=== PATIENT | female | born 1960 | race Caucasian/White ===

== ENCOUNTER 2017-10-22 15:07 | Emergency (ER) | payer MEDICAID ==
[2012-01-01 14:21] VITALS: BMI 16.5
[2017-10-22 16:17] LABS: BASOPHILS 0.3 % (0-2); EOSINOPHILS 0.4 % (0-7); HEMATOCRIT 39.1 % (36.0-48.0); HEMOGLOBIN 13.8 g/dL (12-16); IMMATURE GRANULOCYTES 0.1 % (0-5); LYMPHOCYTES 21.7 % (15-50); MCH 32.4 pg (26.0-34.0); MCHC 35.3 g/dL (31.0-37.0); MCV 91.8 fL (80.0-100.0); MEAN PLATELET VOLUME 10.3 fL (7.4-10.4); MONOCYTES 6.1 % (2-11); NEUTROPHILS 71.4 % (40-80); RBC 4.26 10x6/uL (4.00-5.40); RDW 12.2 % (11.5-14.5)
[2017-10-22 16:29] LABS: INR 1.08 (0.85-1.17); PLATELET COUNT 128 10x3/uL (130-400); PROTIME 13.6 SECONDS (11.6-15.0)
[2017-10-22 16:40] LABS: ALBUMIN 4.1 g/dL (3.4-5.0); ALKALINE PHOSPHATASE 40 U/L (46-116); ALT (SGPT) 18 U/L (10-68); CALC OSMOLALITY 259 mosm/kg (275-300); CALCIUM 8.9 mg/dL (8.5-10.1); CARBON DIOXIDE 26.6 mmol/L (21.0-32.0); CHLORIDE - SERUM 95 mmol/L (98-107); CREATININE - SERUM 0.4 mg/dL (0.6-1.3); GLUCOSE 85 mg/dL (74-106); POTASSIUM - SERUM 3.7 mmol/L (3.5-5.1); SODIUM 131 mmol/L (136-145); UREA NITROGEN 7 mg/dL (7-18); eGFR NON AFRICAN AMERICAN > 90 mL/min (90-120)
[2017-10-22 16:43] LABS: CREATINE KINASE 139 UL (21-215); TROPONIN-I < 0.017 ng/mL (0.000-0.060)
[2017-10-22 17:47] LABS: APPEARANCE CLEAR (CLEAR); BILIRUBIN NEGATIVE (NEGATIVE); COLOR YELLOW (YELLOW); GLUCOSE NEGATIVE (NEGATIVE); KETONE NEGATIVE (NEGATIVE); NITRITE NEGATIVE (NEGATIVE); PROTEIN NEGATIVE (NEGATIVE); UROBILINOGEN NORMAL (NORMAL)
== END 2017-10-22 18:18 | disposition home or self-care (01) ==
LOC: D.ER 15:07
PROVIDERS: Nurse Practitioner Family
DX: S09.93XA Unspecified injury of face, initial encounter (principal); W19.XXXA Unspecified fall, initial encounter; Y93.89 Activity, other specified; Y92.019 Unspecified place in single-family (private) house as the place of occurrence of the external cause; S01.511A Laceration without foreign body of lip, initial encounter; S01.512A Laceration without foreign body of oral cavity, initial encounter; J44.9 Chronic obstructive pulmonary disease, unspecified

== ENCOUNTER 2017-12-03 10:21 | Inpatient (IN) | payer MEDICAID ==
[~2017-12-03] VITALS: Ht 160 cm; Wt 41.1 kg
[2017-12-03 11:00] VITALS: BP 123/78
[2017-12-03 11:08] LABS: BASOPHILS 0.2 % (0-2); EOSINOPHILS 0 % (0-7); HEMATOCRIT 39.2 % (36.0-48.0); HEMOGLOBIN 14.8 g/dL (12-16); IMMATURE GRANULOCYTES 0.2 % (0-5); LYMPHOCYTES 18.3 % (15-50); MCH 33.3 pg (26.0-34.0); MCHC 37.8 g/dL (31.0-37.0); MCV 88.1 fL (80.0-100.0); MEAN PLATELET VOLUME 10.6 fL (7.4-10.4); MONOCYTES 5.9 % (2-11); NEUTROPHILS 75.4 % (40-80); RBC 4.45 10x6/uL (4.00-5.40); RDW 11.5 % (11.5-14.5); WBC 6.4 10x3/uL (4.8-10.8)
[2017-12-03 11:11] LABS: PLATELET COUNT 165 10x3/uL (130-400)
[2017-12-03 11:27] LABS: ALKALINE PHOSPHATASE 40 U/L (46-116); ALT (SGPT) 17 U/L (10-68); CALC OSMOLALITY 241 mosm/kg (275-300); CALCIUM 9.3 mg/dL (8.5-10.1); CARBON DIOXIDE 32.3 mmol/L (21.0-32.0); CREATININE - SERUM 0.4 mg/dL (0.6-1.3); GLUCOSE 96 mg/dL (74-106); POTASSIUM - SERUM 4.2 mmol/L (3.5-5.1); PROTEIN - SERUM 6.7 g/dL (6.4-8.2); SODIUM 121 mmol/L (136-145); UREA NITROGEN 6 mg/dL (7-18); eGFR NON AFRICAN AMERICAN > 90 mL/min (90-120)
[2017-12-03 11:30] LABS: CHLORIDE - SERUM 85 mmol/L (98-107)
[2017-12-03 11:38] LABS: CKMB 2.8 U/L (0.0-3.6); CREATINE KINASE 106 UL (21-215); TROPONIN-I < 0.017 ng/mL (0.000-0.060)
[2017-12-03 12:29] VITALS: BP 113/66
[2017-12-03 13:04] LABS: APPEARANCE CLEAR (CLEAR); BILIRUBIN NEGATIVE (NEGATIVE); COLOR YELLOW (YELLOW); GLUCOSE NEGATIVE (NEGATIVE); KETONE MODERATE mg/dL (NEGATIVE); NITRITE NEGATIVE (NEGATIVE); PROTEIN NEGATIVE (NEGATIVE); UROBILINOGEN NORMAL (NORMAL)
[2017-12-03 13:05] LABS: BACTERIA FEW /hpf (NONE SEEN); EPITHELIAL CELLS OCC /hpf (0-5); MUCUS <1+ /lpf (NONE SEEN); WHITE CELLS - URINE RARE /hpf (0-5)
[2017-12-03 13:30] VITALS: BP 129/76
[2017-12-03 14:32] VITALS: BP 134/76
[2017-12-03 17:23] VITALS: BP 112/76; BMI 15.5
[2017-12-03 20:00] VITALS: BP 101/61
[2017-12-04 06:17] VITALS: BP 114/73
[2017-12-04 07:00] VITALS: BP 101/65
[2017-12-04 09:59] VITALS: Ht 160 cm; Wt 41.1 kg
[2017-12-04 11:00] VITALS: BP 117/67
[2017-12-04 11:28] LABS: HEMATOCRIT 36.6 % (36.0-48.0); HEMOGLOBIN 13.3 g/dL (12-16); MCH 32.6 pg (26.0-34.0); MCHC 36.3 g/dL (31.0-37.0); MCV 89.7 fL (80.0-100.0); MEAN PLATELET VOLUME 10.8 fL (7.4-10.4); PLATELET COUNT 143 10x3/uL (130-400); RBC 4.08 10x6/uL (4.00-5.40); RDW 11.8 % (11.5-14.5)
[2017-12-04 11:34] LABS: WBC 4.1 10x3/uL (4.8-10.8)
[2017-12-04 11:48] LABS: INR 1.02 (0.85-1.17)
[2017-12-04 11:51] LABS: ALBUMIN 3.3 g/dL (3.4-5.0); ALKALINE PHOSPHATASE 37 U/L (46-116); ALT (SGPT) 15 U/L (10-68); CALCIUM 8.2 mg/dL (8.5-10.1); CARBON DIOXIDE 30.2 mmol/L (21.0-32.0); CHLORIDE - SERUM 96 mmol/L (98-107); CREATININE - SERUM 0.5 mg/dL (0.6-1.3); MAGNESIUM - SERUM 1.8 mg/dL (1.8-2.4); PROTEIN - SERUM 5.9 g/dL (6.4-8.2); SODIUM 131 mmol/L (136-145); UREA NITROGEN 5 mg/dL (7-18); eGFR NON AFRICAN AMERICAN > 90 mL/min (90-120)
[2017-12-04 12:00] VITALS: BP 106/73; BP 108/77
[2017-12-04 12:02] LABS: CALC OSMOLALITY 263 mosm/kg (275-300); GLUCOSE 162 mg/dL (74-106); POTASSIUM - SERUM 3.3 mmol/L (3.5-5.1)
[2017-12-04 12:10] LABS: EOSINOPHILS 1 % (0-7); LYMPHOCYTES 20 % (15-50); MONOCYTES 1 % (2-11); NEUTROPHILS 76 % (40-80); PLATELET ESTIMATE NORMAL
[2017-12-04 12:28] LABS: UDS - AMPHET NEGATIVE QUAL (NEGATIVE); UDS - BARB NEGATIVE QUAL (NEGATIVE); UDS - BENZO NEGATIVE QUAL (NEGATIVE); UDS - COCAINE NEGATIVE QUAL (NEGATIVE); UDS - OPIATE NEGATIVE QUAL (NEGATIVE); UDS - PCP NEGATIVE QUAL (NEGATIVE); UDS - THC NEGATIVE QUAL (NEGATIVE)
[2017-12-04 21:53] VITALS: BP 90/54
[2017-12-05 00:49] VITALS: BP 62/33
[2017-12-05 05:17] VITALS: BP 107/69
[2017-12-05 05:19] LABS: CALC OSMOLALITY 262 mosm/kg (275-300); CALCIUM 7.8 mg/dL (8.5-10.1); CARBON DIOXIDE 29.5 mmol/L (21.0-32.0); CHLORIDE - SERUM 99 mmol/L (98-107); CREATININE - SERUM 0.4 mg/dL (0.6-1.3); POTASSIUM - SERUM 3.3 mmol/L (3.5-5.1); SODIUM 133 mmol/L (136-145); UREA NITROGEN 6 mg/dL (7-18); eGFR NON AFRICAN AMERICAN > 90 mL/min (90-120)
[2017-12-05 05:25] LABS: GLUCOSE 88 mg/dL (74-106)
[2017-12-05 09:11] VITALS: BP 103/66
[2017-12-05] MEDS ORDERED: PROTONIX40 MG PO (11:32)
[2017-12-05] MEDS ORDERED: NICODERM C1 PATCH .1 TRANSDERM (11:33)
[2017-12-05 12:35] VITALS: BP 86/58
[2017-12-16 17:07] LABS: AEROBE ID Final report (())
== END 2017-12-05 13:11 | disposition home or self-care (01) | DRG 641 ==
LOC: D.ER 10:21 → D.M2 15:06 → D.EDHOLD 15:06 → D.M2 15:53
PROVIDERS: Family Medicine; Internal Medicine Nephrology
DX: E87.1 Hypo-osmolality and hyponatremia (principal); J44.1 Chronic obstructive pulmonary disease with (acute) exacerbation; F17.213 Nicotine dependence, cigarettes, with withdrawal; R55 Syncope and collapse; R42 Dizziness and giddiness; K25.9 Gastric ulcer, unspecified as acute or chronic, without hemorrhage or perforation

== ENCOUNTER 2018-08-20 17:41 | Inpatient (IN) | payer MEDICAID ==
[~2018-08-20] VITALS: Ht 157.5 cm; Wt 38.2 kg
[~2018-08-20 17:41] MED LIST: NICODERM C1 PATCH .1 TRANSDERM; PROTONIX40 MG PO
[2018-08-20] MEDS ORDERED: MECLIZINE HCL25 MG PO (17:54)
[2018-08-20] MEDS ORDERED: BREO ELLIPTA 11 EACH INH (17:54)
[2018-08-20] MEDS ORDERED: PROVENTIL/2.5 MG/3 M INH (17:55)
[2018-08-20] MEDS ORDERED: CHANTIX 1 MG TAB1 MG PO (17:55)
[2018-08-20 19:04] LABS: ALBUMIN 3.9 g/dL (3.4-5.0); ALKALINE PHOSPHATASE 35 U/L (46-116); ALT (SGPT) 17 U/L (10-68); BILIRUBIN - TOTAL 2.01 mg/dL (0.2-1.3); CALC OSMOLALITY 247 mosm/kg (275-300); CALCIUM 8.4 mg/dL (8.5-10.1); CARBON DIOXIDE 25.6 mmol/L (21.0-32.0); CHLORIDE - SERUM 88 mmol/L (98-107); CREATININE - SERUM 0.3 mg/dL (0.6-1.3); GLUCOSE 80 mg/dL (74-106); POTASSIUM - SERUM 3.9 mmol/L (3.5-5.1); PROTEIN - SERUM 6.7 g/dL (6.4-8.2); SODIUM 125 mmol/L (136-145); UREA NITROGEN 5 mg/dL (7-18); eGFR NON AFRICAN AMERICAN > 90 mL/min (90-120)
[2018-08-20 19:15] LABS: CREATINE KINASE 45 UL (21-215); PRO BNP 77 pg/mL (0-125); TROPONIN-I < 0.017 ng/mL (0.000-0.060)
[2018-08-20 19:43] LABS: BASOPHILS 0.2 % (0-2); EOSINOPHILS 0.6 % (0-7); HEMATOCRIT 37.7 % (36.0-48.0); HEMOGLOBIN 13.9 g/dL (12-16); IMMATURE GRANULOCYTES 0.2 % (0-5); LYMPHOCYTES 38.6 % (15-50); MCH 32.6 pg (26.0-34.0); MCHC 36.9 g/dL (31.0-37.0); MCV 88.3 fL (80.0-100.0); MEAN PLATELET VOLUME 10.8 fL (7.4-10.4); MONOCYTES 11.6 % (2-11); NEUTROPHILS 48.8 % (40-80); PLATELET COUNT 163 10x3/uL (130-400); RBC 4.27 10x6/uL (4.00-5.40); RDW 11.8 % (11.5-14.5); WBC 4.9 10x3/uL (4.8-10.8)
[2018-08-20 20:00] VITALS: BP 116/71
[2018-08-20 20:02] VITALS: BP 127/73
--- NOTE | 2018-08-20 20:27 | NUR ---
assited pt with ambulating to restroom.
--- NOTE | 2018-08-20 20:33 | NUR ---
RECIEVED REPORT FROM BLAYNE IN ER
--- NOTE | 2018-08-20 20:45 | NUR ---
RECIEVED FROM ER VIA WC BY ER STAFF AND FAMILY, PT A&O X3 BREATH SOUNDS EVEN UNLABORED V/S WNL, IV RT HAND 20GAUGE, NO C/O PAIN OR DISTRESS AT THIS TIME CL IN REACH WILL CONT TO MONITOR
--- NOTE | 2018-08-20 21:55 | NUR ---
PAGED DOCTOR CHECK GRADER FOR DR. SOLANO , PT WOULD LIKE TO TAKE HER SINCERE CROSS FROM HOME
[2018-08-21] VITALS (7 sets, daily range): BP systolic 83–162; BP diastolic 43–73; Ht 157.5 cm; Wt 38.2 kg
[2018-08-21 07:14] LABS: CALCIUM 8.8 mg/dL (8.5-10.1); CARBON DIOXIDE 25.7 mmol/L (21.0-32.0); CHLORIDE - SERUM 95 mmol/L (98-107); POTASSIUM - SERUM 4.4 mmol/L (3.5-5.1); SODIUM 133 mmol/L (136-145)
[2018-08-21 07:16] LABS: CALC OSMOLALITY 265 mosm/kg (275-300); CREATININE - SERUM 0.5 mg/dL (0.6-1.3); GLUCOSE 129 mg/dL (74-106); UREA NITROGEN 8 mg/dL (7-18); eGFR NON AFRICAN AMERICAN > 90 mL/min (90-120)
--- NOTE | 2018-08-21 08:00 | NUR ---
REPORT RECEIVED AND CARE ASSUMED. SHIFT ASSESSMENT COMPLETED. AAOX4 DENIES ANY NEEDS OR PAIN AT THIS TIME. BED IN LOW POSITION AND SR UP X 2. WILL CONTINUE TO MONITOR.
--- NOTE | 2018-08-21 20:05 | NUR ---
SITTING UP IN BED. ALERT AND ORIENTED X4. TALKATIVE WITH STAFF. RESP IRREG. BBS DIMINISHED. REPORTS PROD COUGH WITH WHITE SPUTUM. GEN WEAKNESS NOTED. NS @ 100 ML/HR INFUSING IN RT HAND WITHOUT DIFF. DENIES PAIN. STATES SHE WANTS TO SPEAK WITH RANCH RIDER ABOUT GETTING HOME O2. STATES HER RECENTLY AND HAS FINANCIAL CONCERNS. WILL NOTIFY NURSE IN AM OF REQUEST AND CONCERNS. NO DISTRESS. SR ELEVATED X2. CL IN REACH.
[2018-08-22] VITALS (8 sets, daily range): BP systolic 94–127; BP diastolic 52–70
[2018-08-22 06:39] LABS: CALC OSMOLALITY 274 mosm/kg (275-300); CALCIUM 8.1 mg/dL (8.5-10.1); CARBON DIOXIDE 27.2 mmol/L (21.0-32.0); CHLORIDE - SERUM 103 mmol/L (98-107); CREATININE - SERUM 0.4 mg/dL (0.6-1.3); GLUCOSE 142 mg/dL (74-106); MAGNESIUM - SERUM 1.9 mg/dL (1.8-2.4); POTASSIUM - SERUM 4.2 mmol/L (3.5-5.1); SODIUM 137 mmol/L (136-145); UREA NITROGEN 9 mg/dL (7-18); eGFR NON AFRICAN AMERICAN > 90 mL/min (90-120)
[2018-08-22 06:47] LABS: BASOPHILS 0 % (0-2); EOSINOPHILS 0 % (0-7); HEMOGLOBIN 11.9 g/dL (12-16); IMMATURE GRANULOCYTES 0.1 % (0-5); LYMPHOCYTES 4.5 % (15-50); MCH 31.8 pg (26.0-34.0); MONOCYTES 3.2 % (2-11); NEUTROPHILS 92.2 % (40-80); PLATELET COUNT 147 10x3/uL (130-400); RBC 3.74 10x6/uL (4.00-5.40); RDW 12.3 % (11.5-14.5)
[2018-08-22 06:57] LABS: MCV 90.9 fL (80.0-100.0)
--- NOTE | 2018-08-22 07:50 | NUR ---
ASSESSMENT COMPLETE. IV TO R HAND PATENT. WORKFORCE MANAGEMENT MANAGER SHOWING [address] PER TECH. WANTING TO SPEAK WITH A RUBY DEVELOPER THIS AM.
--- NOTE | 2018-08-22 11:25 | MORECARE ---
CASE MANAGEMENT DISCHARGE SUMMARY PATIENT: LIZZY PATTEN UNIT: [id number] ADM DATE: 08/21/18 AGE: 58 : 62 SEX: F ROOM/BED: D.1211 AUTHOR: ALEC MARTINES PHYSICIAN: REFERRING PHYSICIAN: LISA SOLANO MD DATE OF SERVICE: 08/22/18 Discharge Plan Patient Name: LIZZY PATTEN Facility: [facility]:[place] : 1960 Planned Disposition: Home Anticipated Discharge Date: Discharge Date: Expected LOS: Initial Reviewer: [email or web address] Initial Review Date: 08/22/2018 Generated: 08/22/18 12:25 pm Comments DCP- Discharge Planning Updated by [email or web address]: Rylee Bolaños on 08/22/18 10:[address] Patient Name: LIZZY PATTEN Admission Status: ER Accout number: [id number] Admission Date: 08-21-2018 : 1960 Admission Diagnosis: Attending: LISA SOLANO Current LOS: 1 Anticipated DC Date: Planned Disposition: Home Primary Insurance: MEDICAID [place] Discharge Planning Comments: CM spoke to patient to complete initial dc planning assessment. CM educated patient on the CM role and verbal consent given by patient to complete assessment. Patient states she may need oxygen and nebulizers when discharged. Patient Choice Form completed and signed. Chose [facility], 2nd choice [facility] if she qualifies for 02 and nebs. CM will follow and assist as needed with dc planning/needs. Shot Examiner: Rylee Bolaños DCPIA - Discharge Planning Initial Assessment Updated by [id number]: Rylee Bolaños on 08/22/18 11:21 am * Is the patient Alert and Oriented? Yes * PCP VERSER * Pharmacy [facility] * Preadmission Environment Home with Family * ADLs Independent * Equipment None * List name and contact numbers for known caregivers / representatives who currently or will assist patient after discharge: AYAKA HURTADO, * Community resources currently utilized None * Can the patient safely return to the preadmission environment? Yes * Has this patient been hospitalized within the prior 30 days at any hospital? No Coverage Notice Reviewer: [id number] - Rylee Bolaños Notice Issued Date-Time: 08/22/2018 11:22 Notice Type: Patient Choice Letter Notice Delivered To: Patient Relationship to Patient: Self Representative Government Relations Name: Delivery Method: HAND - Hand Delivered Glo Days: Prior Verbal Notification: Recipient Understood Notice: Yes Recipient Signature: Yes Med Rec Note Co-signed by Attending: Coverage Notice Comment: XAVI DOTY Patient Name: LIZZY PATTEN Page 81304 at 1125 All edits/amendments must be made on the electronic document DICTATION DATE: 08/22/18 1125 CORN CUTTER OPERATOR: JENNIFER 08/22/18 1125 RPT#: [id number] DC DATE: STATUS: ADM IN [facility] [address] [place] [address] END OF REPORT
--- NOTE | 2018-08-22 12:30 | NUR ---
UP AD BEKA IN ROOM. DENIES ANY NEEDS AT THIS TIME.
--- NOTE | 2018-08-22 14:34 | NUR ---
RETURNED TO ROOM FROM RADIOLOGY VIA .
--- NOTE | 2018-08-22 17:08 | NUR ---
WILL NEED ORDER FOR ABGS TO QUALIFY PATIENT FOR HOME 02. SHE IS MEDICAID.
--- NOTE | 2018-08-22 17:28 | MORECARE ---
CASE MANAGEMENT DISCHARGE SUMMARY PATIENT: LIZZY PATTEN UNIT: [id number] ADM DATE: 08/21/18 AGE: 58 : 62 SEX: F ROOM/BED: D.1211 AUTHOR: ALEC MARTINES PHYSICIAN: REFERRING PHYSICIAN: LISA SOLANO MD DATE OF SERVICE: 08/22/18 Discharge Plan Patient Name: LIZZY PATTEN Facility: [facility]:[place] : 1960 Planned Disposition: Home Anticipated Discharge Date: Discharge Date: Expected LOS: Initial Reviewer: [email or web address] Initial Review Date: 08/22/2018 Generated: 08/22/18 6:27 pm Comments DCP- Discharge Planning Updated by [id number]: Rylee Bolaños on 08/22/18 4:[address] Patient Name: LIZZY PATTEN Admission Status: ER Accout number: [id number] Admission Date: 08-21-2018 : 1960 Admission Diagnosis: Attending: LISA SOLANO Current LOS: 1 Anticipated DC Date: Planned Disposition: Home Primary Insurance: MEDICAID [place] Discharge Planning Comments: CM SPOKE WITH RT AND IN ORDER TO GET O2 APPROVED THROUGH MEDICAID THERE MUST BE AN ABG AND CERTAIN CRITERIA, FOR A NEBULIZER MEDICAID WILL COVER BUT THE MEDS ARE NOT COVERED AND WOULD BE OUT OF POCKET FOR THE PATIENT. CM TO FOLLOW AND ASSIST WITH DC PLANNING/NEEDS. SHE MAY SHOULD FOLLOW UP WITH A PEDIATRIC SPEECH THERAPIST AFTER DISCHARGE IF SHE HASN'T ALREADY. Sexual Assault Response Coordinator: Rylee Bolaños DCP- Discharge Planning Updated by [email or web address]: Rylee Bolaños on 08/22/18 10:[address] Patient Name: LIZZY PATTEN Admission Status: ER Accout number: [id number] Admission Date: 08-21-2018 : 1960 Admission Diagnosis: Attending: LISA SOLANO Current LOS: 1 Anticipated DC Date: Planned Disposition: Home Primary Insurance: MEDICAID [place] Discharge Planning Comments: CM spoke to patient to complete initial dc planning assessment. CM educated patient on the CM role and verbal consent given by patient to complete assessment. Patient states she may need oxygen and nebulizers when discharged. Patient Choice Form completed and signed. Chose [facility], 2nd choice [facility] if she qualifies for 02 and nebs. CM will follow and assist as needed with dc planning/needs. Sexual Assault Response Coordinator: Rylee Bolaños DCPIA - Discharge Planning Initial Assessment Updated by [email or web address]: Rylee Bolaños on 08/22/18 11:21 am * Is the patient Alert and Oriented? Yes * PCP VERSER * Pharmacy [facility] * Preadmission Environment Home with Family * ADLs Independent * Equipment None * List name and contact numbers for known caregivers / representatives who currently or will assist patient after discharge: GENESIS, AYAKA, * Community resources currently utilized None * Can the patient safely return to the preadmission environment? Yes * Has this patient been hospitalized within the prior 30 days at any hospital? No Coverage Notice Reviewer: [id number] - Rylee Bolaños Notice Issued Date-Time: 08/22/2018 11:22 Notice Type: Patient Choice Letter Notice Delivered To: Patient Relationship to Patient: Self Workforce Consultant Name: Delivery Method: HAND - Hand Delivered Glo Days: Prior Verbal Notification: Recipient Understood Notice: Yes Recipient Signature: Yes Med Rec Note Co-signed by Attending: Coverage Notice Comment: XAVI DOTY Last DP export: 08/22/18 10:25 am Patient Name: LIZZY PATTEN Page [id number] at 1728 All edits/amendments must be made on the electronic document DICTATION DATE: 08/22/181726 QUALITY CONTROL INDUSTRIAL ENGINEER: JENNIFER 08/22/181726 RPT#: [id number] DC DATE: STATUS: ADM IN [facility] [address] [place] [address] END OF REPORT
--- NOTE | 2018-08-22 20:10 | NUR ---
THE PATIENT WAS LYING IN BED AND WATCHING TELEVISION WHEN STAFF ENTERED HER ROOM. BED IS IN THE LOW POSITION WITH SIDERAILS X2 ANS CALL LIGHT WITHIN REACH. THE PATIENT WAS EDUCATED ON THE USE OF A CALL LIGHT AND DEMONSTRATES UNDERSTANDING VIA TEACHABCK METHOD. THE PATIENT APPEARS COMFORTABLE WITH NO QUESTIONS OR CONCERNS AT THIS TIME.
--- NOTE | 2018-08-23 03:21 | NUR ---
THE PATIENT APPEARSB TO BE SLEEPING. BED IS IN THE LOW POSITION WITH SIDERAILS X2 AND CALL LIGHT WITHIN REACH.
[2018-08-23 04:30] VITALS: BP 109/69
--- NOTE | 2018-08-23 07:31 | NUR ---
PT SITTING UP IN BED. CALL LIGHT IN REACH. PT DENIES NEEDS OR PAIN. BED IN LOW. RESP EVEN AND UNLABORED. WILL CONTINUE TO MONITOR.
[2018-08-23 07:39] VITALS: BP 115/66
[2018-08-23 09:47] LABS: BASOPHILS 0 % (0-2); EOSINOPHILS 0 % (0-7); HEMOGLOBIN 12.2 g/dL (12-16); IMMATURE GRANULOCYTES 0.2 % (0-5); LYMPHOCYTES 4.2 % (15-50); MCH 32.4 pg (26.0-34.0); MCHC 34.9 g/dL (31.0-37.0); MEAN PLATELET VOLUME 11.2 fL (7.4-10.4); MONOCYTES 2.4 % (2-11); NEUTROPHILS 93.2 % (40-80); PLATELET COUNT 142 10x3/uL (130-400); RBC 3.76 10x6/uL (4.00-5.40); RDW 12.7 % (11.5-14.5); WBC 8.8 10x3/uL (4.8-10.8)
[2018-08-23 10:01] LABS: CARBON DIOXIDE 24.5 mmol/L (21.0-32.0); CHLORIDE - SERUM 100 mmol/L (98-107); MAGNESIUM - SERUM 1.6 mg/dL (1.8-2.4); POTASSIUM - SERUM 3.9 mmol/L (3.5-5.1); SODIUM 138 mmol/L (136-145); UREA NITROGEN 7 mg/dL (7-18)
[2018-08-23 10:02] LABS: CALC OSMOLALITY 279 mosm/kg (275-300); CREATININE - SERUM 0.6 mg/dL (0.6-1.3); GLUCOSE 200 mg/dL (74-106); eGFR NON AFRICAN AMERICAN > 90 mL/min (90-120)
[2018-08-23 10:15] LABS: MCV 93.1 fL (80.0-100.0)
[2018-08-23 11:22] VITALS: BP 93/59
--- NOTE | 2018-08-23 13:24 | MORECARE ---
CASE MANAGEMENT DISCHARGE SUMMARY PATIENT: LIZZY PATTEN UNIT: [id number] ADM DATE: 08/21/18 AGE: 58 : 62 SEX: F ROOM/BED: D.1211 AUTHOR: ALEC MARTINES PHYSICIAN: REFERRING PHYSICIAN: LISA SOLANO MD DATE OF SERVICE: 08/23/18 Discharge Plan Patient Name: LIZZY PATTEN Facility: [facility]:[place] : 1960 Planned Disposition: Home Anticipated Discharge Date: Discharge Date: Expected LOS: Initial Reviewer: [id number] Initial Review Date: 08/22/2018 Generated: 08/23/18 2:24 pm Comments DCP- Discharge Planning Updated by [id number]: Rylee Bolaños on 08/22/18 4:[address] Patient Name: LIZZY PATTEN Admission Status: ER Accout number: [id number] Admission Date: 08-21-2018 : 1960 Admission Diagnosis: Attending: LISA SOLANO Current LOS: 1 Anticipated DC Date: Planned Disposition: Home Primary Insurance: MEDICAID [place] Discharge Planning Comments: CM SPOKE WITH RT AND IN ORDER TO GET O2 APPROVED THROUGH MEDICAID THERE MUST BE AN ABG AND CERTAIN CRITERIA, FOR A NEBULIZER MEDICAID WILL COVER BUT THE MEDS ARE NOT COVERED AND WOULD BE OUT OF POCKET FOR THE PATIENT. CM TO FOLLOW AND ASSIST WITH DC PLANNING/NEEDS. SHE MAY SHOULD FOLLOW UP WITH A SR TECHNICAL SALES CONSULTANT AFTER DISCHARGE IF SHE HASN'T ALREADY. Art Psychotherapist Or Therapist: Rylee Bolaños DCP- Discharge Planning Updated by [id number]: Rylee Bolaños on 08/22/18 10:[address] Patient Name: LIZZY PATTEN Admission Status: ER Accout number: [id number] Admission Date: 08-21-2018 : 1960 Admission Diagnosis: Attending: LISA SOLANO Current LOS: 1 Anticipated DC Date: Planned Disposition: Home Primary Insurance: MEDICAID [place] Discharge Planning Comments: CM spoke to patient to complete initial dc planning assessment. CM educated patient on the CM role and verbal consent given by patient to complete assessment. Patient states she may need oxygen and nebulizers when discharged. Patient Choice Form completed and signed. Chose [facility], 2nd choice [facility] if she qualifies for 02 and nebs. CM will follow and assist as needed with dc planning/needs. Art Psychotherapist Or Therapist: Rylee oBlaños DCPIA - Discharge Planning Initial Assessment Updated by [email or web address]: Rylee Bolaños on 08/22/18 11:21 am * Is the patient Alert and Oriented? Yes * PCP VERSER * Pharmacy [facility] * Preadmission Environment Home with Family * ADLs Independent * Equipment None * List name and contact numbers for known caregivers / representatives who currently or will assist patient after discharge: AYAKA HURTADO, * Community resources currently utilized None * Can the patient safely return to the preadmission environment? Yes * Has this patient been hospitalized within the prior 30 days at any hospital? No External Providers External Provider: Cait Prescott Next Contact Date: Service Request Date: Service Type: Resolution: Reviewer: Comments: Coverage Notice Reviewer: [id number] Olamide Bolaños Notice Issued Date-Time: 08/22/2018 11:22 Notice Type: Patient Choice Letter Notice Delivered To: Patient Relationship to Patient: Self Grab Driver Name: Delivery Method: HAND - Hand Delivered Glo Days: Prior Verbal Notification: Recipient Understood Notice: Yes Recipient Signature: Yes Med Rec Note Co-signed by Attending: Coverage Notice Comment: XAVI DOTY Last DP export: 08/22/18 4:28 pm Patient Name: LIZZY PATTEN Page [id number] at 1324 All edits/amendments must be made on the electronic document DICTATION DATE: 08/23/18 1324 ELECTRONICS ENGINEERING TECHNOLOGIST: JENNIFER 08/23/18 1324 RPT#: [id number] DC DATE: STATUS: ADM IN [facility] [address] [place] [address] END OF REPORT
--- NOTE | 2018-08-23 13:32 | MORECARE ---
CASE MANAGEMENT DISCHARGE SUMMARY PATIENT: LIZZY PATTEN UNIT: [id number] ADM DATE: 08/21/18 AGE: 58 : 62 SEX: F ROOM/BED: D.1211 AUTHOR: ALEC MARTINES PHYSICIAN: REFERRING PHYSICIAN: LISA SOLANO MD DATE OF SERVICE: 08/23/18 Discharge Plan Patient Name: LIZZY PATTEN Facility: [facility]:[place] : 1960 Planned Disposition: Home Anticipated Discharge Date: Discharge Date: Expected LOS: Initial Reviewer: [email or web address] Initial Review Date: 08/22/2018 Generated: 08/23/18 2:32 pm Comments DCP- Discharge Planning Updated by [email or web address]: Tess Pearce on 08/23/18 12:[address] CM and Dr. Segal discussed discharge planning. Patient will not need ABG as she has been on room air all day with sats > or equal to 95. Will not qualify for home oxygen. CM faxed order for Nebulizer to [facility]. Nebulizer will be delivered to hospital in ~ 1 hour. Patient will then be ready for discharge from [facility]. DCP- Discharge Planning Updated by [id number]: Rylee Bolaños on 08/22/18 4:[address] Patient Name: LIZZY PATTEN Admission Status: ER Accout number: [id number] Admission Date: 08-21-2018 : 1960 Admission Diagnosis: Attending: LISA SOLANO Current LOS: 1 Anticipated DC Date: Planned Disposition: Home Primary Insurance: MEDICAID [place] Discharge Planning Comments: CM SPOKE WITH RT AND IN ORDER TO GET O2 APPROVED THROUGH MEDICAID THERE MUST BE AN ABG AND CERTAIN CRITERIA, FOR A NEBULIZER MEDICAID WILL COVER BUT THE MEDS ARE NOT COVERED AND WOULD BE OUT OF POCKET FOR THE PATIENT. CM TO FOLLOW AND ASSIST WITH DC PLANNING/NEEDS. SHE MAY SHOULD FOLLOW UP WITH A EGG PROCESSOR AFTER DISCHARGE IF SHE HASN'T ALREADY. Electric Sealing Machine Operator: Rylee Bolaños DCP- Discharge Planning Updated by [email or web address]: Rylee Bolaños on 08/22/18 10:[address] Patient Name: LIZZY PATTEN Admission Status: ER Accout number: [id number] Admission Date: 08-21-2018 : 1960 Admission Diagnosis: Attending: ILSA SOLANO Current LOS: 1 Anticipated DC Date: Planned Disposition: Home Primary Insurance: MEDICAID [place] Discharge Planning Comments: CM spoke to patient to complete initial dc planning assessment. CM educated patient on the CM role and verbal consent given by patient to complete assessment. Patient states she may need oxygen and nebulizers when discharged. Patient Choice Form completed and signed. Chose [facility], 2nd choice [facility] if she qualifies for 02 and nebs. CM will follow and assist as needed with dc planning/needs. Electric Sealing Machine Operator: Rylee Bolaños DCPIA - Discharge Planning Initial Assessment Updated by [id number]: Rylee Bolaños on 08/22/18 11:21 am * Is the patient Alert and Oriented? Yes * PCP VERSER * Pharmacy [facility] * Preadmission Environment Home with Family * ADLs Independent * Equipment None * List name and contact numbers for known caregivers / representatives who currently or will assist patient after discharge: YAAKA HURTADO, * Community resources currently utilized None * Can the patient safely return to the preadmission environment? Yes * Has this patient been hospitalized within the prior 30 days at any hospital? No Coverage Notice Reviewer: [id number] - Rylee Bolaños Notice Issued Date-Time: 08/22/2018 11:22 Notice Type: Patient Choice Letter Notice Delivered To: Patient Relationship to Patient: Self Senior Business Intelligence Analyst Name: Delivery Method: HAND - Hand Delivered Glo Days: Prior Verbal Notification: Recipient Understood Notice: Yes Recipient Signature: Yes Med Rec Note Co-signed by Attending: Coverage Notice Comment: XAVI DOTY Last DP export: 08/23/18 12:24 pm Patient Name: LZIZY PATTEN Page [phone] at 1332 All edits/amendments must be made on the electronic document DICTATION DATE: 08/23/18 1332 IMPORT AND EXPORT CLERK: JENNIEFR 08/23/18 1332 RPT#: [id number] DC DATE: STATUS: ADM IN [facility] [address] [place] [address] END OF REPORT
--- NOTE | 2018-08-23 13:44 | NUR ---
Nutrition follow-up: Diet: Regular with po intake 100% of last 3 meals Labs reviewed Wt: 84# - standing scale Will continue to monitor weight closely Following.
[2018-08-23] MEDS ORDERED: IPRAT-ALBUT 0.5-3 ML INH (14:10)
--- NOTE | 2018-08-23 16:44 | NUR ---
PT LEFT VIA WHEELCHAIR. BELONGINGS TAKEN. IV REMOVED. CATH INTACT.
--- NOTE | 2018-08-23 17:13 | MORECARE ---
CASE MANAGEMENT DISCHARGE SUMMARY PATIENT: LIZZY PATTEN UNIT: [id number] ADM DATE: 08/21/18 AGE: 58 : 62 SEX: F ROOM/BED: D.1211 AUTHOR: ALEC MARTINES PHYSICIAN: REFERRING PHYSICIAN: LISA SOLANO MD DATE OF SERVICE: 08/23/18 Discharge Plan Patient Name: LIZZY PATTEN Facility: [facility]:[place] : 1960 Planned Disposition: Home Anticipated Discharge Date: Discharge Date: 08/23/2018 Expected LOS: Initial Reviewer: [id number] Initial Review Date: 08/22/2018 Generated: 08/23/18 6:13 pm Comments DCP- Discharge Planning Updated by [id number]: Tess Pearce on 08/23/18 12:[address] CM and Dr. Segal discussed discharge planning. Patient will not need ABG as she has been on room air all day with sats > or equal to 95. Will not qualify for home oxygen. CM faxed order for Nebulizer to [facility]. Nebulizer will be delivered to hospital in ~ 1 hour. Patient will then be ready for [facility] from [facility]. DCP- Discharge Planning Updated by [email or web address]: Rylee Bolaños on 08/22/18 4:[address] Patient Name: LIZZY PATTEN Admission Status: ER Accout number: [id number] Admission Date: 08-21-2018 : 1960 Admission Diagnosis: Attending: LISA SOLANO Current LOS: 1 Anticipated DC Date: Planned Disposition: Home Primary Insurance: MEDICAID [place] Discharge Planning Comments: CM SPOKE WITH RT AND IN ORDER TO GET O2 APPROVED THROUGH MEDICAID THERE MUST BE AN ABG AND CERTAIN CRITERIA, FOR A NEBULIZER MEDICAID WILL COVER BUT THE MEDS ARE NOT COVERED AND WOULD BE OUT OF POCKET FOR THE PATIENT. CM TO FOLLOW AND ASSIST WITH DC PLANNING/NEEDS. SHE MAY SHOULD FOLLOW UP WITH A SPECIALIST FIELD ENGINEER AFTER DISCHARGE IF SHE HASN'T ALREADY. Flavoring Maker: Rylee Bolaños DCP- Discharge Planning Updated by [id number]: Rylee Bolaños on 08/22/18 10:[address] Patient Name: LIZZY SANDOR Admission Status: ER Accout number: [id number] Admission Date: 08-21-2018 : 1960 Admission Diagnosis: Attending: LISA SOLANO Current LOS: 1 Anticipated DC Date: Planned Disposition: Home Primary Insurance: MEDICAID [place] Discharge Planning Comments: CM spoke to patient to complete initial dc planning assessment. CM educated patient on the CM role and verbal consent given by patient to complete assessment. Patient states she may need oxygen and nebulizers when discharged. Patient Choice Form completed and signed. Chose [facility], 2nd choice [facility] if she qualifies for 02 and nebs. CM will follow and assist as needed with dc planning/needs. Flavoring Maker: Rylee Bolaños DCPIA - Discharge Planning Initial Assessment Updated by [email or web address]: Rylee Bolaños on 08/22/18 11:21 am * Is the patient Alert and Oriented? Yes * PCP VERSER * Pharmacy [facility] * Preadmission Environment Home with Family * ADLs Independent * Equipment None * List name and contact numbers for known caregivers / representatives who currently or will assist patient after discharge: AYAKA HURTADO, * Community resources currently utilized None * Can the patient safely return to the preadmission environment? Yes * Has this patient been hospitalized within the prior 30 days at any hospital? No Coverage Notice Reviewer: [id number] - Rylee Boalños Notice Issued Date-Time: 08/22/2018 11:22 Notice Type: Patient Choice Letter Notice Delivered To: Patient Relationship to Patient: Self Animal Stunner Name: Delivery Method: HAND - Hand Delivered Glo Days: Prior Verbal Notification: Recipient Understood Notice: Yes Recipient Signature: Yes Med Rec Note Co-signed by Attending: Coverage Notice Comment: XAVI DOTY Last DP export: 08/23/18 12:32 pm Patient Name: LIZZY PATTEN Page [phone] at 1713 All edits/amendments must be made on the electronic document DICTATION DATE: 08/23/181712 MANAGER LAB: JENNIFER 08/23/181712 RPT#: [id number] DC DATE:08/23/18 STATUS: DIS IN [place] [id number] [place] [address] END OF REPORT
== END 2018-08-23 16:44 | disposition home or self-care (01) | DRG 191 ==
LOC: D.ER 17:41 → D.M3 20:08 → OBSVTIME 20:08 → D.M3 08-21 15:11
PROVIDERS: Family Medicine; ADMIT Emergency Medicine; ATTEND Emergency Medicine
DX: J44.1 Chronic obstructive pulmonary disease with (acute) exacerbation (principal); F17.213 Nicotine dependence, cigarettes, with withdrawal; E87.1 Hypo-osmolality and hyponatremia; E87.8 Other disorders of electrolyte and fluid balance, not elsewhere classified; R42 Dizziness and giddiness

== ENCOUNTER 2018-12-25 19:12 | Emergency (ER) | payer MEDICAID ==
[~2018-12-25] VITALS: Ht 157.5 cm; Wt 37.7 kg
[~2018-12-25 19:12] MED LIST changes: +BREO ELLIPTA 11 EACH INH; +CHANTIX 1 MG TAB1 MG PO; +IPRAT-ALBUT 0.5-3 ML INH; +MECLIZINE HCL25 MG PO; +PROVENTIL/2.5 MG/3 M INH
[2018-12-25 19:14] VITALS: Ht 157.5 cm; Wt 37.7 kg
[2018-12-25 19:48] LABS: BASOPHILS 0.2 % (0-2); EOSINOPHILS 0.3 % (0-7); HEMATOCRIT 37.7 % (36.0-48.0); HEMOGLOBIN 13.5 g/dL (12-16); LYMPHOCYTES 22.8 % (15-50); MCH 32.6 pg (26.0-34.0); MCHC 35.8 g/dL (31.0-37.0); MCV 91.1 fL (80.0-100.0); MEAN PLATELET VOLUME 10.2 fL (7.4-10.4); MONOCYTES 5.9 % (2-11); NEUTROPHILS 70.8 % (40-80); PLATELET COUNT 134 10x3/uL (130-400); RBC 4.14 10x6/uL (4.00-5.40); RDW 11.4 % (11.5-14.5); WBC 6.1 10x3/uL (4.8-10.8)
[2018-12-25 19:52] LABS: APTT 47.8 SECONDS (22.8-39.4); INR 1.18 (0.85-1.17); PROTIME 14.5 SECONDS (11.6-15.0)
[2018-12-25 20:07] LABS: ALKALINE PHOSPHATASE 42 U/L (46-116); ALT (SGPT) 28 U/L (10-68); BILIRUBIN - TOTAL 1.18 mg/dL (0.2-1.3); CALC OSMOLALITY 247 mosm/kg (275-300); CALCIUM 8.3 mg/dL (8.5-10.1); CARBON DIOXIDE 30.1 mmol/L (21.0-32.0); CHLORIDE - SERUM 88 mmol/L (98-107); CREATININE - SERUM 0.6 mg/dL (0.6-1.3); PROTEIN - SERUM 6.5 g/dL (6.4-8.2); SODIUM 124 mmol/L (136-145); UREA NITROGEN 10 mg/dL (7-18); eGFR NON AFRICAN AMERICAN > 90 mL/min (90-120)
[2018-12-25 20:08] LABS: GLUCOSE 87 mg/dL (74-106)
[2018-12-25 20:19] LABS: CKMB 2.5 U/L (0.0-3.6); CREATINE KINASE 87 UL (21-215); PRO BNP 63 pg/mL (0-125)
[2018-12-25 20:24] LABS: TROPONIN-I < 0.017 ng/mL (0.000-0.060)
[2018-12-25 21:45] VITALS: BP 115/67
== END 2018-12-25 21:45 | disposition home or self-care (01) ==
LOC: D.ER 19:12
PROVIDERS: Emergency Medicine
DX: R06.00 Dyspnea, unspecified (principal); E87.1 Hypo-osmolality and hyponatremia

== ENCOUNTER → 2018-12-26 13:39 | Outpatient (CLI) | payer OTHER ==
[2018-12-25 19:14] VITALS: BMI 15.2
[~2018-12-26 13:39] MED LIST changes: +SYMBICORT 80-10.2 GM IH
== END | disposition home or self-care (01) ==
LOC: D.RAD 13:39 → D.RT 15:00
PROVIDERS: ATTEND Pediatrics
DX: J44.9 Chronic obstructive pulmonary disease, unspecified (principal)

== ENCOUNTER 2018-12-31 16:36 | Inpatient (IN) | payer MEDICAID ==
[~2018-12-31] VITALS: Ht 157.5 cm; Wt 42.0 kg
[~2018-12-31 16:36] MED LIST changes: -SYMBICORT 80-10.2 GM IH
[2018-12-31 17:36] LABS: BASOPHILS 0.1 % (0-2); EOSINOPHILS 0.1 % (0-7); HEMATOCRIT 38.2 % (36.0-48.0); HEMOGLOBIN 13.3 g/dL (12-16); IMMATURE GRANULOCYTES 0.2 % (0-5); LYMPHOCYTES 3.3 % (15-50); MCH 32.4 pg (26.0-34.0); MCHC 34.8 g/dL (31.0-37.0); MCV 93.2 fL (80.0-100.0); MEAN PLATELET VOLUME 10.3 fL (7.4-10.4); MONOCYTES 3.2 % (2-11); NEUTROPHILS 93.1 % (40-80); PLATELET COUNT 140 10x3/uL (130-400); RDW 11.7 % (11.5-14.5); WBC 11.4 10x3/uL (4.8-10.8)
[2018-12-31 17:44] LABS: APTT 25.5 SECONDS (22.8-39.4); INR 0.99 (0.85-1.17); PROTIME 12.6 SECONDS (11.6-15.0)
[2018-12-31 17:49] LABS: ALBUMIN 3.6 g/dL (3.4-5.0); ALKALINE PHOSPHATASE 37 U/L (46-116); ALT (SGPT) 21 U/L (10-68); BILIRUBIN - TOTAL 0.57 mg/dL (0.2-1.3); CALC OSMOLALITY 263 mosm/kg (275-300); CALCIUM 8.3 mg/dL (8.5-10.1); CARBON DIOXIDE 34.7 mmol/L (21.0-32.0); CHLORIDE - SERUM 94 mmol/L (98-107); CREATININE - SERUM 0.6 mg/dL (0.6-1.3); GLUCOSE 112 mg/dL (74-106); POTASSIUM - SERUM 4.1 mmol/L (3.5-5.1); PROTEIN - SERUM 6.4 g/dL (6.4-8.2); SODIUM 132 mmol/L (136-145); UREA NITROGEN 8 mg/dL (7-18); eGFR NON AFRICAN AMERICAN > 90 mL/min (90-120)
[2018-12-31 18:01] LABS: CKMB 1.4 U/L (0.0-3.6); CREATINE KINASE 55 UL (21-215); PRO BNP 116 pg/mL (0-125); TROPONIN-I 0.017 ng/mL (0.000-0.060)
[2018-12-31 19:20] VITALS: BP 98/59
--- NOTE | 2018-12-31 22:00 | NUR ---
RECIEVED PATIENT FROM ER VIA STRETCHER ESCORTED BY STAFF. QUICK START AND ADMISSION HISTORY COMPLETE. PATIENT COMPLAINS OF BEING HUNGRY. PATIENT GIVEN SANDWICH TRAY. PATIENT VERBALIZED THANKS. NO OTHER COMPLAINTS AT THIS TIME. NO DISTRESS NOTED.
[2018-12-31] MEDS ORDERED: SYMBICORT 80-10.2 GM IH (22:03)
[2018-12-31 23:25] VITALS: BP 96/57; BMI 15.2
[2019-01-01 01:01] VITALS: BP 90/52
--- NOTE | 2019-01-01 03:28 | NUR ---
PATIENT LAYING IN BED. EYES CLOSED, CHEST RISING AND FALLING. NO DISTRESS NOTED.
[2019-01-01 04:37] LABS: BASOPHILS 0 % (0-2); EOSINOPHILS 0 % (0-7); HEMATOCRIT 35.4 % (36.0-48.0); HEMOGLOBIN 12.1 g/dL (12-16); LYMPHOCYTES 7.3 % (15-50); MCH 31.9 pg (26.0-34.0); MCHC 34.2 g/dL (31.0-37.0); MCV 93.4 fL (80.0-100.0); MEAN PLATELET VOLUME 10.5 fL (7.4-10.4); MONOCYTES 0.6 % (2-11); NEUTROPHILS 92.1 % (40-80); PLATELET COUNT 135 10x3/uL (130-400); RBC 3.79 10x6/uL (4.00-5.40); RDW 11.7 % (11.5-14.5)
[2019-01-01 04:50] LABS: WBC 3.1 10x3/uL (4.8-10.8)
[2019-01-01 05:08] LABS: CALC OSMOLALITY 263 mosm/kg (275-300); CALCIUM 7.9 mg/dL (8.5-10.1); CARBON DIOXIDE 31.7 mmol/L (21.0-32.0); CHLORIDE - SERUM 98 mmol/L (98-107); CREATINE KINASE 63 UL (21-215); CREATININE - SERUM 0.6 mg/dL (0.6-1.3); MAGNESIUM - SERUM 1.5 mg/dL (1.8-2.4); PHOSPHOROUS 3.4 mg/dL (2.5-4.9); POTASSIUM - SERUM 4.4 mmol/L (3.5-5.1); SODIUM 130 mmol/L (136-145); TROPONIN-I 0.019 ng/mL (0.000-0.060); UREA NITROGEN 10 mg/dL (7-18); eGFR NON AFRICAN AMERICAN > 90 mL/min (90-120)
[2019-01-01 05:16] VITALS: BP 107/66
[2019-01-01 05:19] LABS: GLUCOSE 163 mg/dL (74-106)
[2019-01-01 08:41] VITALS: BP 98/59
[2019-01-01 10:01] LABS: % SATURATION 28 % (15-55); IRON 74 ug/dl (35-150); TOTAL IRON BIND CAPACITY 263 ug/dl (260-445); UNSAT IRON BIND CAPACITY 189 ug/dl (150-375)
[2019-01-01 12:04] VITALS: BP 98/57
[2019-01-01 15:22] VITALS: Ht 157.5 cm; Wt 42.0 kg
[2019-01-01 15:46] VITALS: BP 111/60
--- NOTE | 2019-01-01 19:00 | NUR ---
PATIENT SITTING UP IN BED. PATIENT WITHOUT COMPLAINTS AT THIS TIME. NO DISTRESS NOTED.
[2019-01-01 20:00] VITALS: BP 93/47
[2019-01-02] VITALS: BP 96/55
[2019-01-02 03:53] LABS: APPEARANCE CLEAR (CLEAR); BILIRUBIN NEGATIVE (NEGATIVE); COLOR YELLOW (YELLOW); GLUCOSE 100 mg/dL (NEGATIVE); KETONE NEGATIVE (NEGATIVE); NITRITE NEGATIVE (NEGATIVE); PROTEIN NEGATIVE (NEGATIVE); UROBILINOGEN NORMAL (NORMAL)
[2019-01-02 04:00] VITALS: BP 96/54
[2019-01-02 06:09] LABS: BASOPHILS 0 % (0-2); EOSINOPHILS 0 % (0-7); HEMATOCRIT 32.9 % (36.0-48.0); IMMATURE GRANULOCYTES 0.1 % (0-5); LYMPHOCYTES 4.3 % (15-50); MCH 31.3 pg (26.0-34.0); MCHC 33.4 g/dL (31.0-37.0); MCV 93.7 fL (80.0-100.0); MEAN PLATELET VOLUME 10.7 fL (7.4-10.4); MONOCYTES 3.7 % (2-11); NEUTROPHILS 91.9 % (40-80); PLATELET COUNT 136 10x3/uL (130-400); RBC 3.51 10x6/uL (4.00-5.40); RDW 11.9 % (11.5-14.5)
[2019-01-02 06:15] LABS: WBC 8.3 10x3/uL (4.8-10.8)
[2019-01-02 06:49] LABS: CALC OSMOLALITY 277 mosm/kg (275-300); CALCIUM 7.8 mg/dL (8.5-10.1); CARBON DIOXIDE 29.3 mmol/L (21.0-32.0); CHLORIDE - SERUM 102 mmol/L (98-107); GLUCOSE 152 mg/dL (74-106); PHOSPHOROUS 2.9 mg/dL (2.5-4.9); POTASSIUM - SERUM 3.9 mmol/L (3.5-5.1); SODIUM 138 mmol/L (136-145); UREA NITROGEN 11 mg/dL (7-18)
[2019-01-02 06:55] LABS: CREATININE - SERUM 0.4 mg/dL (0.6-1.3); MAGNESIUM - SERUM 2.2 mg/dL (1.8-2.4); eGFR NON AFRICAN AMERICAN > 90 mL/min (90-120)
[2019-01-02 08:49] VITALS: BP 109/64
[2019-01-02 12:25] VITALS: BP 105/65
--- NOTE | 2019-01-02 17:40 | MORECARE ---
CASE MANAGEMENT DISCHARGE SUMMARY PATIENT: LIZZY PATTEN UNIT: [id number] ADM DATE: 12/31/18 AGE: 58 : 62 SEX: F ROOM/BED: D.2140 AUTHOR: BOBBIDOC PHYSICIAN: REFERRING PHYSICIAN: ENA MACKAY MD DATE OF SERVICE: 01/02/19 Discharge Plan Patient Name: LIZZY PATTEN Facility: [facility]:[place] : 1960 Planned Disposition: Home Anticipated Discharge Date: 01/03/19 Discharge Date: Expected LOS: 3 Initial Reviewer: [id number] Initial Review Date: 12/31/2018 Generated: 01/02/19 6:40 pm Comments DCP- Discharge Planning Updated by [email or web address]: Elias Downing on 01/02/19 4:[address] Patient Name: LIZZY PATTEN Admission Status: ER Accout number: [id number] Admission Date: 12-31-2018 : 1960 Admission Diagnosis: Attending: ENA MACKAY Current LOS: 2 Anticipated DC Date: 01-03-2019 Planned Disposition: Home Primary Insurance: MEDICAID [place] Discharge Planning Comments: CM RECEIVED OXYGEN ORDER, MET WITH PT IN ROOM TO DISCUSS DISCHARGE PLANNING AND NEEDS. PT REPORTS LIVING AT HOME INDEPENDENTLY WITH ADULT DAUGHTER. PT HAS CANE, HOME OXYGEN, NEBULIZER AND WALKER AT HOME; OXYGEN PROVIDER IS [facility]. PT HAS NO OUTSIDE SERVICES ASSISTING IN THE HOME. CM DISCUSSED AVAILABILITY OF HOME HEALTH, REHAB SERVICES AND MEDICAL EQUIPMENT. PT DENIES DISCHARGE NEEDS, OTHER THAN PORTABLE OXYGEN, REPORTS HER DAUGHTER WILL PICK HER UP FOR DISCHARGE HOME. CHOICE FOR [facility] SIGNED. CM FAXED REFERRAL TO [facility], . CM LEFT MESSAGE FOR RN [facility] TO FOLLOW UP WITH CALL TO [facility], , TO VERIFY RECEIPT OF REFERRAL AND CONFIRM THAT THEY CAN PROVIDE THE PORTABLE OXYGEN FOR DISCHARGE HOME. Catalyst Concentration Operator: Elias Downing DCPIA - Discharge Planning Initial Assessment Updated by [email or web address]: Elias Downing on 01/02/19 5:35 pm * Is the patient Alert and Oriented? Yes * How many steps to enter\exit or inside your home? RAMP * PCP DR. SCHOFIELD * Pharmacy [facility] * Preadmission Environment Home with Family * ADLs Independent * Equipment Cane Nebulizer Oxygen Walker * Other Equipment [facility] - HOME OXYGEN PROVIDER * List name and contact numbers for known caregivers / representatives who currently or will assist patient after discharge: LOUISA PATTEN, DTR, * Verbal permission to speak to the caregivers and representatives has been obtained from the patient. N/A * Community resources currently utilized None * Please name any agencies selected above. NONE * Additional services required to return to the preadmission environment? No * Can the patient safely return to the preadmission environment? Yes * Has this patient been hospitalized within the prior 30 days at any hospital? No External Providers External Provider: [facility] Next Contact Date: 01/02/2019 Service Request Date: Service Type: Resolution: Reviewer: Comments: Coverage Notice Reviewer: [id number] - Elias Downing Notice Issued Date-Time: 01/02/2019 17:15 Notice Type: Patient Choice Letter Notice Delivered To: Patient Relationship to Patient: Relay Motorman Name: Delivery Method: HAND - Hand Delivered Glo Days: Prior Verbal Notification: Recipient Understood Notice: Yes Recipient Signature: Yes Med Rec Note Co-signed by Attending: Coverage Notice Comment: [facility] Patient Name: LIZZY PATTEN Page [id number] at 1740 All edits/amendments must be made on the electronic document DICTATION DATE: 01/02/191739 WELDING TESTER: JENNIFER 01/02/191739 RPT#: [id number] [place] DATE: STATUS: ADM IN [facility] [address] [place] [address] END OF REPORT
--- NOTE | 2019-01-02 18:34 | NUR ---
RESP UL ON . UD CONT. PER RT. CALL LIGHT IN REACH. WILL CONT. PLAN OF CARE.
--- NOTE | 2019-01-02 19:10 | NUR ---
BED SIDE REPORT RECEIVED. PT SITTING UP IN BED. STATES THAT SOME ONE TOOK HER PURSE DURING DAY SHIFT AND FEELS THAT SHE IS GOING CRAZY BECAUSE SHE WENT TO RESTROOM AND HER CARD FROM THE OFFICER AND DR PÉREZ WAS MISSING OFF HER TABLE. CALMED PT DOWN AND TOLD HER I CAN LOOK FOR A NEW CARD FROM DR KHAN AND SEE IF I CAN FIND OUT WHAT OFFICER CAME OUT. PT STATES OK AND ASKS FOR A DIET COKE AND 2 POPSICLES. PT IS ON EDGE AND QUICK WITH NEGATIVE WORDS. PLACED NAME AND DATE ON BOARD. PT HAS NO S/S OF DISTRESS. BED LOW AND CALL LIGHT IN REACH. WILL CPOC
[2019-01-02 20:00] VITALS: BP 116/67
--- NOTE | 2019-01-02 21:34 | NUR ---
SPOKE WITH PT ABOUT NOT HAVING INFO ON HER POLICE REPORT REGARDING HER PURSE. GAVE PT DR PÉREZ OFFICE NUMBER. PT SITTING UP IN BED. VERBALIZED UNDERSTANDING OF MEDICATIONS. DENIES ANY QUESTIONS OR CONCERNS REGARDING PLAN OF CARE. PT WILL CALL FOR ASSIST WHEN NEEDED. WILL CPOC
[2019-01-03] VITALS: BP 106/60
--- NOTE | 2019-01-03 01:53 | NUR ---
PT ASLEEP AROUSES TO VERBAL STIMULI. DENIES ANY NEEDS. NO S/S OF DISTRESS. WILL CPOC
--- NOTE | 2019-01-03 03:13 | NUR ---
PT ASLEEP. RESP EVEN AND UNLABORED. SHALLOW. 3L O2 NC. PT HAS NO S/S OF DISTRESS. BED LOW AND CALL LIGHT IN REACH. WILL CPOC
[2019-01-03 04:00] VITALS: BP 118/68
[2019-01-03 05:28] LABS: BASOPHILS 0 % (0-2); EOSINOPHILS 0 % (0-7); HEMATOCRIT 34.2 % (36.0-48.0); HEMOGLOBIN 11.6 g/dL (12-16); IMMATURE GRANULOCYTES 0.3 % (0-5); LYMPHOCYTES 5.1 % (15-50); MCHC 33.9 g/dL (31.0-37.0); MCV 94.2 fL (80.0-100.0); MEAN PLATELET VOLUME 10.8 fL (7.4-10.4); MONOCYTES 3.7 % (2-11); NEUTROPHILS 90.9 % (40-80); PLATELET COUNT 132 10x3/uL (130-400); RBC 3.63 10x6/uL (4.00-5.40); RDW 11.9 % (11.5-14.5); WBC 8.7 10x3/uL (4.8-10.8)
[2019-01-03 05:42] LABS: CALC OSMOLALITY 265 mosm/kg (275-300); CALCIUM 7.7 mg/dL (8.5-10.1); CARBON DIOXIDE 30.3 mmol/L (21.0-32.0); CHLORIDE - SERUM 97 mmol/L (98-107); CREATININE - SERUM 0.4 mg/dL (0.6-1.3); GLUCOSE 143 mg/dL (74-106); POTASSIUM - SERUM 4.3 mmol/L (3.5-5.1); SODIUM 132 mmol/L (136-145); UREA NITROGEN 11 mg/dL (7-18); eGFR NON AFRICAN AMERICAN > 90 mL/min (90-120)
--- NOTE | 2019-01-03 06:40 | NUR ---
PT SITTING UP IN BED ON PHONE. DIET COKE GIVEN. PT ON 3L O2 NC. EDUCATION GIVEN ON PROTONIX. PT VERBALIZED UNDERSTANDING. PT DENIES ANY NEEDS. NO S/S OF DISTRESS. WILL CPOC
--- NOTE | 2019-01-03 07:57 | NUR ---
PT SITTING UP IN BED ALERT AND ORIENTED X4. PT ON 3L O2. RR EVEN AND UNLABORED. PT DENIES ANY SOB OR PAIN. NO S/S OF DISTRESS. PT DENIES ANY PAIN OR NEEDS AT THIS TIME. WILL CONTINUE TO MONITOR.
[2019-01-03 08:30] VITALS: BP 120/72
[2019-01-03] MEDS ORDERED: LEVOFLOXACIN500 MG PO (10:17)
[2019-01-03] MEDS ORDERED: PREDNISONE20 MG PO (10:19)
--- NOTE | 2019-01-03 11:10 | MORECARE ---
CASE MANAGEMENT DISCHARGE SUMMARY PATIENT: LIZZY PATTEN UNIT: [id number] ADM DATE: 12/31/18 AGE: 58 : 62 SEX: F ROOM/BED: D.2140 AUTHOR: BOBBI,DOC PHYSICIAN: REFERRING PHYSICIAN: ENA MACKAY MD DATE OF SERVICE: 01/03/19 Discharge Plan Patient Name: LIZZY PATTEN Facility: [facility]:[place] : 1960 Planned Disposition: Home Anticipated Discharge Date: 01/03/19 Discharge Date: Expected LOS: 3 Initial Reviewer: [id number] Initial Review Date: 12/31/2018 Generated: 01/03/19 12:09 pm Comments DCP- Discharge Planning Updated by [id number]: Suzanne Gaming on 01/03/19 9:[address] LATE ENTRY 0855 TC [facility] THIS AM. SPOKE W/ GUZMAN. CONFIRMED THE ORDER HAD BEEN RECEIVED FOR THE PORTABLE OXYGEN TO BE DELIVERED TO THE PATIENT'S ROOM TODAY. 1045 PORTABLE OXYGEN AND 2 ADDITIONAL TANKS DELIVERED TO THE BEDSIDE. DCP- Discharge Planning Updated by [id number]: Elias Downing on 01/02/19 4:[address] Patient Name: LIZZY PATTEN Admission Status: ER Accout number: [id number] Admission Date: 12-31-2018 : 1960 Admission Diagnosis: Attending: ENA MACKAY Current LOS: 2 Anticipated DC Date: 01-03-2019 Planned Disposition: Home Primary Insurance: MEDICAID [place] Discharge Planning Comments: CM RECEIVED OXYGEN ORDER, MET WITH PT IN ROOM TO DISCUSS DISCHARGE PLANNING AND NEEDS. PT REPORTS LIVING AT HOME INDEPENDENTLY WITH ADULT DAUGHTER. PT HAS CANE, HOME OXYGEN, NEBULIZER AND WALKER AT HOME; OXYGEN PROVIDER IS [facility]. PT HAS NO OUTSIDE SERVICES ASSISTING IN THE HOME. CM DISCUSSED AVAILABILITY OF HOME HEALTH, REHAB SERVICES AND MEDICAL EQUIPMENT. PT DENIES DISCHARGE NEEDS, OTHER THAN PORTABLE OXYGEN, REPORTS HER DAUGHTER WILL PICK HER UP FOR DISCHARGE HOME. CHOICE FOR [facility] SIGNED. CM FAXED REFERRAL TO [facility], . CM LEFT MESSAGE FOR RN [facility] TO FOLLOW UP WITH CALL TO [facility], , TO VERIFY RECEIPT OF REFERRAL AND CONFIRM THAT THEY CAN PROVIDE THE PORTABLE OXYGEN FOR DISCHARGE HOME. Hoop Cutter: Elias Downing DCPIA - Discharge Planning Initial Assessment Updated by [id number]: Elias Downing on 01/02/19 5:35 pm * Is the patient Alert and Oriented? Yes * How many steps to enter\exit or inside your home? RAMP * PCP DR. SCHOFIELD * Pharmacy [facility] * Preadmission Environment Home with Family * ADLs Independent * Equipment Cane Nebulizer Oxygen Walker * Other Equipment [facility] - HOME OXYGEN PROVIDER * List name and contact numbers for known caregivers / representatives who currently or will assist patient after discharge: LOUISA PATTEN, DTR, * Verbal permission to speak to the caregivers and representatives has been obtained from the patient. N/A * Community resources currently utilized None * Please name any agencies selected above. NONE * Additional services required to return to the preadmission environment? No * Can the patient safely return to the preadmission environment? Yes * Has this patient been hospitalized within the prior 30 days at any hospital? No Coverage Notice Reviewer: [id number] - Elias Downing Notice Issued Date-Time: 01/02/2019 17:15 Notice Type: Patient Choice Letter Notice Delivered To: Patient Relationship to Patient: Flowers Salesperson Name: Delivery Method: HAND - Hand Delivered Glo Days: Prior Verbal Notification: Recipient Understood Notice: Yes Recipient Signature: Yes Med Rec Note Co-signed by Attending: Coverage Notice Comment: [facility] Last DP export: 01/02/19 4:40 p Patient Name: LIZZY PATTEN Page [id number] at 1110 All edits/amendments must be made on the electronic document DICTATION DATE: 01/03/19 110 [employer] MANAGER: JENNIFER 01/03/19 110 RPT#: [id number] DC DATE: STATUS: ADM IN [facility] [address] [facility] [place] [address] END OF REPORT
[2019-01-03 12:44] VITALS: BP 120/78
[2019-01-03] MEDS ORDERED: ALBUTEROL SULF8.5 GM INH (12:48)
[2019-01-03] MEDS ORDERED: STERAPRED DS 1010 MG PO (12:49)
--- NOTE | 2019-01-03 12:56 | NUR ---
ASKED NURSE TO CALL IN PROAIR INHALER. NURSE CALLED IN PROAIR TO [facility] AND SPOKE WITH HARLEY
--- NOTE | 2019-01-03 14:56 | NUR ---
Nutrition Follow Up: Chart reviewed. Pt is tolerating regular diet. Wt gain noted. No BM since admit. Meds and labs reviewed. Rec continue current diet. RD following.
--- NOTE | 2019-01-03 15:26 | NUR ---
RESP UL ON . FAMILY AT BS. CALL LIGHT IN REACH.
[2019-01-06 03:06] LABS: IMMUNOGLOBULIN E 15 IU/mL (6-495)
--- NOTE | 2019-01-06 09:49 | MORECARE ---
CASE MANAGEMENT DISCHARGE SUMMARY PATIENT: LIZZY PATTEN UNIT: [id number] ADM DATE: 12/31/18 AGE: 58 : 62 SEX: F ROOM/BED: D.2140 AUTHOR: BOBBI,DOC PHYSICIAN: REFERRING PHYSICIAN: ENA MACKAY MD DATE OF SERVICE: 01/06/19 Discharge Plan Patient Name: LIZZY PATTEN Facility: [facility]:[place] : 1960 Planned Disposition: Home Anticipated Discharge Date: 01/03/19 Discharge Date: 01/03/2019 Expected LOS: 3 Initial Reviewer: [id number] Initial Review Date: 12/31/2018 Generated: 01/06/19 10:49 am Comments DCP- Discharge Planning Updated by [email or web address]: Suzanne Gaming on 01/03/19 9:[address] LATE [facility] SPOKE W/ GUZMAN. CONFIRMED THE ORDER HAD BEEN RECEIVED FOR THE PORTABLE OXYGEN TO BE DELIVERED TO THE PATIENT'S ROOM TODAY. 1045 PORTABLE OXYGEN AND 2 ADDITIONAL TANKS DELIVERED TO THE BEDSIDE. DCP- Discharge Planning Updated by [id number]: Elias Downing on 01/02/19 4:[address] Patient Name: LIZZY PATTEN Admission Status: ER Accout number: [id number] Admission Date: 12-31-2018 : 1960 Admission Diagnosis: Attending: ENA MACKAY Current LOS: 2 Anticipated DC Date: 01-03-2019 Planned Disposition: Home Primary Insurance: MEDICAID [place] Discharge Planning Comments: CM RECEIVED OXYGEN ORDER, MET WITH PT IN ROOM TO DISCUSS DISCHARGE PLANNING AND NEEDS. PT REPORTS LIVING AT HOME INDEPENDENTLY WITH ADULT DAUGHTER. PT HAS CANE, HOME OXYGEN, NEBULIZER AND WALKER AT HOME; OXYGEN PROVIDER IS [facility]. PT HAS NO OUTSIDE SERVICES ASSISTING IN THE HOME. CM DISCUSSED AVAILABILITY OF HOME HEALTH, REHAB SERVICES AND MEDICAL EQUIPMENT. PT DENIES DISCHARGE NEEDS, OTHER THAN PORTABLE OXYGEN, REPORTS HER DAUGHTER WILL PICK HER UP FOR DISCHARGE HOME. CHOICE FOR [facility] SIGNED. CM FAXED REFERRAL TO [facility], . CM LEFT MESSAGE FOR RN [facility] TO FOLLOW UP WITH CALL TO [facility], , TO VERIFY RECEIPT OF REFERRAL AND CONFIRM THAT THEY CAN PROVIDE THE PORTABLE OXYGEN FOR DISCHARGE HOME. Supervisor Floor Assembly: Elias Downing DCPIA - Discharge Planning Initial Assessment Updated by [id number]: Elias Downing on 01/02/19 5:35 pm * Is the patient Alert and Oriented? Yes * How many steps to enter\exit or inside your home? RAMP * PCP DR. SCHOFIELD * Pharmacy [facility] * Preadmission Environment Home with Family * ADLs Independent * Equipment Cane Nebulizer Oxygen Walker * Other Equipment [facility] - HOME OXYGEN PROVIDER * List name and contact numbers for known caregivers / representatives who currently or will assist patient after discharge: LOUISA SANDOR, DTR, * Verbal permission to speak to the caregivers and representatives has been obtained from the patient. N/A * Community resources currently utilized None * Please name any agencies selected above. NONE * Additional services required to return to the preadmission environment? No * Can the patient safely return to the preadmission environment? Yes * Has this patient been hospitalized within the prior 30 days at any hospital? No Coverage Notice Reviewer: [id number] - Elias Downing Notice Issued Date-Time: 01/02/2019 17:15 Notice Type: Patient Choice Letter Notice Delivered To: Patient Relationship to Patient: Parole Or Probation Officer Name: Delivery Method: HAND - Hand Delivered Glo Days: Prior Verbal Notification: Recipient Understood Notice: Yes Recipient Signature: Yes Med Rec Note Co-signed by Attending: Coverage Notice Comment: [facility] Last DP export: 01/03/19 10:10 a Patient Name: LIZZY PATTEN Page [id number] at 0949 All edits/amendments must be made on the electronic document DICTATION DATE: 01/06/19948 SHIFT COORDINATOR: JENNIFER 01/06/1948 RPT#: [id number] CT DATE:01/03/19 STATUS: DIS IN [facility] [address] [place] [address] END OF REPORT
== END 2019-01-03 15:57 | disposition home or self-care (01) | DRG 189 ==
LOC: D.ER 16:36 → D.M2 20:55
PROVIDERS: Family Medicine; Internal Medicine Pulmonary Disease; ADMIT Internal Medicine Nephrology; ATTEND Internal Medicine Nephrology
DX: J96.22 Acute and chronic respiratory failure with hypercapnia (principal); F17.213 Nicotine dependence, cigarettes, with withdrawal; J96.21 Acute and chronic respiratory failure with hypoxia; D64.9 Anemia, unspecified; E83.42 Hypomagnesemia; J43.9 Emphysema, unspecified

== ENCOUNTER 2019-01-05 20:12 | Inpatient (IN) | payer MEDICAID ==
[~2019-01-05] VITALS: Ht 157.5 cm; Wt 43.1 kg
[~2019-01-05 20:12] MED LIST changes: +ALBUTEROL SULF8.5 GM INH; +LEVOFLOXACIN500 MG PO; +PREDNISONE20 MG PO; +STERAPRED DS 1010 MG PO; +SYMBICORT 80-10.2 GM IH
[2019-01-05 21:09] LABS: BASOPHILS 0 % (0-2); EOSINOPHILS 0 % (0-7); HEMOGLOBIN 13.6 g/dL (12-16); IMMATURE GRANULOCYTES 0.3 % (0-5); LYMPHOCYTES 3.2 % (15-50); MCH 32.2 pg (26.0-34.0); MCHC 36.8 g/dL (31.0-37.0); MCV 87.5 fL (80.0-100.0); MEAN PLATELET VOLUME 10.1 fL (7.4-10.4); MONOCYTES 2.9 % (2-11); NEUTROPHILS 93.6 % (40-80); PLATELET COUNT 158 10x3/uL (130-400); RBC 4.23 10x6/uL (4.00-5.40); RDW 11.1 % (11.5-14.5); WBC 11.3 10x3/uL (4.8-10.8)
--- NOTE | 2019-01-05 21:15 | NUR ---
PT RESTING ON BED, FAMILY AT BEDSIDE. PT APPEARS TO BE IN NO DISTRESS AT THIS TIME. O2 SAT 93% ON 3L.
[2019-01-05 21:17] LABS: APTT 24.7 SECONDS (22.8-39.4); INR 0.95 (0.85-1.17); PROTIME 12.2 SECONDS (11.6-15.0)
[2019-01-05 21:34] LABS: ALBUMIN 3.4 g/dL (3.4-5.0); ALKALINE PHOSPHATASE 39 U/L (46-116); ALT (SGPT) 22 U/L (10-68); BILIRUBIN - TOTAL 1.63 mg/dL (0.2-1.3); CALCIUM 8.3 mg/dL (8.5-10.1); CARBON DIOXIDE 33.2 mmol/L (21.0-32.0); CKMB 2.3 U/L (0.0-3.6); CREATINE KINASE 71 UL (21-215); CREATININE - SERUM 0.4 mg/dL (0.6-1.3); GLUCOSE 124 mg/dL (74-106); POTASSIUM - SERUM 3.4 mmol/L (3.5-5.1); PRO BNP 419 pg/mL (0-125); PROTEIN - SERUM 6.1 g/dL (6.4-8.2); UREA NITROGEN 10 mg/dL (7-18); eGFR NON AFRICAN AMERICAN > 90 mL/min (90-120)
[2019-01-05 21:38] LABS: CALC OSMOLALITY 241 mosm/kg (275-300); TROPONIN-I < 0.017 ng/mL (0.000-0.060)
[2019-01-05 21:39] VITALS: BP 118/74
[2019-01-05 21:39] LABS: CHLORIDE - SERUM 84 mmol/L (98-107); SODIUM 120 mmol/L (136-145)
--- NOTE | 2019-01-05 22:32 | NUR ---
ARRIVED ON FLOOR VIA STRETCHER. TRANSFERRED TO BED. ORIENTED TO ROOM AND CALL LIGHT. IV INFUSING NS TO PATENT LEFT AC. ASSESSMENT AND HISTORY PER FLOW SHEET.
[2019-01-05 23:50] VITALS: BP 124/68; BMI 17.4
[2019-01-06 04:00] VITALS: BP 113/71
[2019-01-06 05:55] LABS: BASOPHILS 0 % (0-2); EOSINOPHILS 0 % (0-7); HEMATOCRIT 34.2 % (36.0-48.0); HEMOGLOBIN 12.3 g/dL (12-16); IMMATURE GRANULOCYTES 0.2 % (0-5); LYMPHOCYTES 4.8 % (15-50); MCH 31.5 pg (26.0-34.0); MCV 87.5 fL (80.0-100.0); MEAN PLATELET VOLUME 10.3 fL (7.4-10.4); PLATELET COUNT 159 10x3/uL (130-400); RBC 3.91 10x6/uL (4.00-5.40); RDW 11.2 % (11.5-14.5)
[2019-01-06 05:58] LABS: WBC 5.2 10x3/uL (4.8-10.8)
[2019-01-06 06:16] LABS: ALBUMIN 2.9 g/dL (3.4-5.0); ALKALINE PHOSPHATASE 36 U/L (46-116); ALT (SGPT) 17 U/L (10-68); CALC OSMOLALITY 251 mosm/kg (275-300); CALCIUM 7.6 mg/dL (8.5-10.1); CARBON DIOXIDE 32.8 mmol/L (21.0-32.0); CHLORIDE - SERUM 89 mmol/L (98-107); CREATININE - SERUM 0.5 mg/dL (0.6-1.3); GLUCOSE 163 mg/dL (74-106); POTASSIUM - SERUM 4.1 mmol/L (3.5-5.1); PROTEIN - SERUM 5.4 g/dL (6.4-8.2); SODIUM 124 mmol/L (136-145); UREA NITROGEN 8 mg/dL (7-18); eGFR NON AFRICAN AMERICAN > 90 mL/min (90-120)
[2019-01-06 08:53] VITALS: BP 114/67
[2019-01-06 12:41] VITALS: Ht 157.5 cm; Wt 43.1 kg
--- NOTE | 2019-01-06 14:51 | NUR ---
SCD'S ON PT.IS TO BEDSIDE AND PT INSTRUCTED.
--- NOTE | 2019-01-06 19:12 | NUR ---
HAS BEEN UP WITH ASSIST MULTIPLE TIMES TODAY. REMAINS WITHOUT CHNAGE.CONT PLAN OF CARE
[2019-01-06 20:00] VITALS: BP 111/65
[2019-01-06 23:58] LABS: APPEARANCE CLEAR (CLEAR); BILIRUBIN NEGATIVE (NEGATIVE); COLOR STRAW (YELLOW); GLUCOSE 250 mg/dL (NEGATIVE); KETONE NEGATIVE (NEGATIVE); NITRITE NEGATIVE (NEGATIVE); PROTEIN NEGATIVE (NEGATIVE); SPECIFIC GRAVITY 1.005 (1.005-1.020); UROBILINOGEN NORMAL (NORMAL)
[2019-01-07] VITALS: BP 105/59
--- NOTE | 2019-01-07 03:07 | NUR ---
ASSESSMENT PER FLOWSHEET. O2 ON 3L/M PER NC NO DISTRESS. SALINE LOCK PATENT LEFT AC SITE CLEAR. SR UP X2 CALL LIGHT WITHIN REACH.TELM. SR WITH HR 83.
[2019-01-07 04:00] VITALS: BP 97/58
[2019-01-07 04:48] LABS: BASOPHILS 0 % (0-2); EOSINOPHILS 0 % (0-7); HEMATOCRIT 32.7 % (36.0-48.0); HEMOGLOBIN 11.8 g/dL (12-16); IMMATURE GRANULOCYTES 0.2 % (0-5); LYMPHOCYTES 3.2 % (15-50); MCH 31.6 pg (26.0-34.0); MCHC 36.1 g/dL (31.0-37.0); MCV 87.7 fL (80.0-100.0); MONOCYTES 5.2 % (2-11); NEUTROPHILS 91.4 % (40-80); PLATELET COUNT 172 10x3/uL (130-400); RBC 3.73 10x6/uL (4.00-5.40); RDW 11.3 % (11.5-14.5)
[2019-01-07 04:55] LABS: WBC 8.6 10x3/uL (4.8-10.8)
[2019-01-07 05:09] LABS: ALKALINE PHOSPHATASE 32 U/L (46-116); ALT (SGPT) 17 U/L (10-68); BILIRUBIN - TOTAL 0.67 mg/dL (0.2-1.3); CALC OSMOLALITY 264 mosm/kg (275-300); CALCIUM 7.9 mg/dL (8.5-10.1); CARBON DIOXIDE 34.7 mmol/L (21.0-32.0); CHLORIDE - SERUM 93 mmol/L (98-107); CREATININE - SERUM 0.5 mg/dL (0.6-1.3); GLUCOSE 173 mg/dL (74-106); POTASSIUM - SERUM 3.7 mmol/L (3.5-5.1); PROTEIN - SERUM 5.2 g/dL (6.4-8.2); SODIUM 131 mmol/L (136-145); UREA NITROGEN 6 mg/dL (7-18); eGFR NON AFRICAN AMERICAN > 90 mL/min (90-120)
[2019-01-07 08:46] VITALS: BP 131/62
--- NOTE | 2019-01-07 13:19 | MORECARE ---
CASE MANAGEMENT DISCHARGE SUMMARY PATIENT: LIZZY PATTEN UNIT: [id number] ADM DATE: 01/05/19 AGE: 58 : 62 SEX: F ROOM/BED: D.2219 AUTHOR: ALEC MARTINES PHYSICIAN: REFERRING PHYSICIAN: ENA MACKAY MD DATE OF SERVICE: 01/07/19 Discharge Plan Patient Name: LIZZY PATTEN Facility: [facility]:[place] : 1960 Planned Disposition: Anticipated Discharge Date: Discharge Date: Expected LOS: Initial Reviewer: [email or web address] Initial Review Date: 01/07/2019 Generated: 01/07/19 2:19 pm Comments DCP- Discharge Planning Updated by [email or web address]: Vera Almeida on 01/07/19 12:[address] Patient Name: LIZZY PATTEN Admission Status: ER Accout number: [id number] Admission Date: 01-05-2019 : 1960 Admission Diagnosis: Attending: ENA MACKAY Current LOS: 2 Anticipated DC Date: Planned Disposition: Primary Insurance: MEDICAID [place] Discharge Planning Comments: CM met with patient to complete initial dc planning assessment. CM educated patient on the CM role and verbal consent given by patient to complete assessment. CM verified patient's address, phone number, and emergency contact phone numbers. Patient lives at home with family and reports She is independent in hER care. At discharge patient plans to return home and feels this is a safe discharge. CM discussed availability of home health, rehab services, and medical equipment. Patient denied known discharge needs at this time.. . CM will continue to follow and will assist as needed with dc plans/needs. Pulp House Supervisor: Vera Almeida DCPIA - Discharge Planning Initial Assessment Updated by [email or web address]: Vera Almeida on 01/07/19 1:14 pm * Is the patient Alert and Oriented? Yes * How many steps to enter\exit or inside your home? * PCP Verser * Pharmacy [facility] * Preadmission Environment Home with Family * ADLs Independent * Other Equipment O2, NEB, WALKER, CANE * List name and contact numbers for known caregivers / representatives who currently or will assist patient after discharge: AYAKA Duque * Verbal permission to speak to the caregivers and representatives has been obtained from the patient. Yes * Additional services required to return to the preadmission environment? No * Can the patient safely return to the preadmission environment? Yes * Has this patient been hospitalized within the prior 30 days at any hospital? Yes Patient Name: LIZZY PATTEN Page [id number] at 1319 All edits/amendments must be made on the electronic document DICTATION DATE: 01/07/191318 FIRE CHIEF'S AIDE: JENNIFER 01/07/191318 RPT#: [id number] DC DATE: STATUS: ADM IN [facility] [address] [place] [address] END OF REPORT
[2019-01-07 13:23] VITALS: BP 107/69
--- NOTE | 2019-01-07 16:04 | NUR ---
I have reviewed this patient and I concur with the Shift Assessment completed by the Licensed Practical Nurse today this shift.
[2019-01-07 16:55] VITALS: BP 112/58
--- NOTE | 2019-01-07 20:00 | NUR ---
ASSESSMENT PER FLOWSHEET. IV PATENT LEFT WRIST CHANGED TO SALINE LOCK.SITE CLEAR. O2 ON 2L/M PER NC. NO DISTRESS.
[2019-01-07 20:19] VITALS: BP 106/59
--- NOTE | 2019-01-07 21:30 | NUR ---
MEDS GIVEN PER MAR.
--- NOTE | 2019-01-08 | NUR ---
RESTING QUIETLY DENIES NEEDS.
[2019-01-08 00:58] VITALS: BP 110/64
--- NOTE | 2019-01-08 02:00 | NUR ---
RESTING QUIETLY DENIES NEEDS SR UP X2 CALL LIGHT WITHIN REACH.
--- NOTE | 2019-01-08 03:46 | NUR ---
RESTING QUIETLY AT THIS TIME.
[2019-01-08 04:54] VITALS: BP 91/59
[2019-01-08 06:55] LABS: ALBUMIN 2.9 g/dL (3.4-5.0); ALKALINE PHOSPHATASE 27 U/L (46-116); ALT (SGPT) 18 U/L (10-68); CALC OSMOLALITY 267 mosm/kg (275-300); CALCIUM 8.1 mg/dL (8.5-10.1); CARBON DIOXIDE 32.5 mmol/L (21.0-32.0); CHLORIDE - SERUM 95 mmol/L (98-107); CREATININE - SERUM 0.4 mg/dL (0.6-1.3); GLUCOSE 142 mg/dL (74-106); POTASSIUM - SERUM 3.6 mmol/L (3.5-5.1); PROTEIN - SERUM 5.2 g/dL (6.4-8.2); SODIUM 134 mmol/L (136-145); UREA NITROGEN 6 mg/dL (7-18); eGFR NON AFRICAN AMERICAN > 90 mL/min (90-120)
[2019-01-08 07:04] LABS: HEMATOCRIT 32.4 % (36.0-48.0); HEMOGLOBIN 11.5 g/dL (12-16); MCH 31.9 pg (26.0-34.0); MCHC 35.5 g/dL (31.0-37.0); MEAN PLATELET VOLUME 10.5 fL (7.4-10.4); PLATELET COUNT 178 10x3/uL (130-400); RDW 11.8 % (11.5-14.5)
[2019-01-08 07:22] LABS: WBC 5.8 10x3/uL (4.8-10.8)
[2019-01-08 08:58] VITALS: BP 109/89
[2019-01-08 10:21] LABS: LYMPHOCYTES 4 % (15-50); MONOCYTES 8 % (2-11); NEUTROPHILS 87 % (40-80); PLATELET ESTIMATE NORMAL
[2019-01-08 10:22] LABS: HYPOCHROMASIA OCC
[2019-01-08] MEDS ORDERED: LEVAQUIN750 MG PO (12:17)
[2019-01-08] MEDS ORDERED: FLORAJEN3 CAPS460 MG PO (12:17)
[2019-01-08] MEDS ORDERED: TESSALON PERLE100 MG PO (12:17)
[2019-01-08] MEDS ORDERED: MUCINEX600 MG PO (12:17)
[2019-01-08] MEDS ORDERED: PREDNISONE10 MG PO (12:18)
[2019-01-08] MEDS ORDERED: Nicoderm [PBKC] TRANSDERM (12:19)
[2019-01-08] MEDS ORDERED: PROVENTIL/2.5 MG/3 M INH (12:19)
[2019-01-08 12:49] VITALS: BP 102/57
--- NOTE | 2019-01-08 13:56 | MORECARE ---
CASE MANAGEMENT DISCHARGE SUMMARY PATIENT: LIZZY PATTEN UNIT: [id number] ADM DATE: 01/05/19 AGE: 58 : 62 SEX: F ROOM/BED: D.2219 AUTHOR: ALEC MARTINES PHYSICIAN: REFERRING PHYSICIAN: ENA MACKAY MD DATE OF SERVICE: 01/08/19 Discharge Plan Patient Name: LIZZY PATTEN Facility: [facility]:[place] : 1960 Planned Disposition: Anticipated Discharge Date: Discharge Date: Expected LOS: Initial Reviewer: [email or web address] Initial Review Date: 01/07/2019 Generated: 01/08/19 2:55 pm Comments DCP- Discharge Planning Updated by [email or web address]: Clemencia Edgar on 01/08/19 12:[address] Patient is discharging home today, she is unsure if she needs Home Health, she said that her children will be at home for the next 2-3 weeks and she did not need it then. She said if she thought she needed it she would call her PCP. She has home O2 and a Nebulizer. DCP- Discharge Planning Updated by [id number]: Vera Almeida on 01/07/19 12:[address] Patient Name: LIZZY PATTEN Admission Status: ER Accout number: [id number] Admission Date: 01-05-2019 : 1960 Admission Diagnosis: Attending: ENA MACKAY Current LOS: 2 Anticipated DC Date: Planned Disposition: Primary Insurance: MEDICAID [place] Discharge Planning Comments: CM met with patient to complete initial dc planning assessment. CM educated patient on the CM role and verbal consent given by patient to complete assessment. CM verified patient's address, phone number, and emergency contact phone numbers. Patient lives at home with family and reports She is independent in hER care. At discharge patient plans to return home and feels this is a safe discharge. CM discussed availability of home health, rehab services, and medical equipment. Patient denied known discharge needs at this time.. . CM will continue to follow and will assist as needed with dc plans/needs. Medical Art Therapist: Vera Almeida DCPIA - Discharge Planning Initial Assessment Updated by [email or web address]: Vera Almeida on 01/07/19 1:14 pm * Is the patient Alert and Oriented? Yes * How many steps to enter\exit or inside your home? * PCP Verser * Pharmacy [facility] * Preadmission Environment Home with Family * ADLs Independent * Other Equipment O2, NEB, WALKER, CANE * List name and contact numbers for known caregivers / representatives who currently or will assist patient after discharge: SON Dunia * Verbal permission to speak to the caregivers and representatives has been obtained from the patient. Yes * Additional services required to return to the preadmission environment? No * Can the patient safely return to the preadmission environment? Yes * Has this patient been hospitalized within the prior 30 days at any hospital? Yes Last DP export: 01/07/19 12:19 p Patient Name: LIZZY PATTEN Page [phone] at 1356 All edits/amendments must be made on the electronic document DICTATION DATE: 01/08/19 1355 HEALTH SOCIAL WORK PROFESSOR: JENNIFER 01/08/19 1355 RPT#: [id number] DC DATE: STATUS: ADM IN [facility] [address] [place] [address] END OF REPORT
--- NOTE | 2019-01-08 14:30 | NUR ---
PATIENT RECIEVED DC INSTRUCTIONS. VERBALIZED UNDERSTANDING. NO QUESTIONS AT THIS TIME. PRESCRIPTION GIVEN TO PATIENT. AWAITING TRANSPORTATION FOR DC. CALL LIGHT WITHIN REACH.
--- NOTE | 2019-01-08 16:50 | NUR ---
PATIENT IV REMOVED AND TELE TAKEN BACK TO MONITOR STATION. PATIENT ASSISTED DOWN TO PRIVATE VEHICLE VIA WC WITH PERSONAL BELONGINGS. CALL LIGHT WITHIN REACH.
== END 2019-01-08 18:45 | disposition home or self-care (01) | DRG 189 ==
LOC: D.ER 20:12 → D.MS 21:35
PROVIDERS: Emergency Medicine; Family Medicine; ADMIT Internal Medicine Nephrology; ATTEND Internal Medicine Nephrology
DX: J96.21 Acute and chronic respiratory failure with hypoxia (principal); J44.1 Chronic obstructive pulmonary disease with (acute) exacerbation; E87.1 Hypo-osmolality and hyponatremia; F17.213 Nicotine dependence, cigarettes, with withdrawal; E46 Unspecified protein-calorie malnutrition; Z68.1 Body mass index [BMI] 19.9 or less, adult; E86.0 Dehydration; E87.6 Hypokalemia; D64.9 Anemia, unspecified

== ENCOUNTER 2019-11-29 23:07 | Inpatient (IN) | payer MEDICAID ==
[~2019-11-29] VITALS: Ht 157.5 cm; Wt 56.5 kg
[~2019-11-29 23:07] MED LIST changes: +FLORAJEN3 CAPS460 MG PO; +LEVAQUIN750 MG PO; +MUCINEX600 MG PO; +Nicoderm [PBKC] TRANSDERM; +PREDNISONE10 MG PO; +TESSALON PERLE100 MG PO
[2019-11-29 23:29] LABS: BASOPHILS 0.1 % (0-2); EOSINOPHILS 0.7 % (0-7); HEMATOCRIT 38.4 % (36.0-48.0); HEMOGLOBIN 12.3 g/dL (12-16); IMMATURE GRANULOCYTES 0.1 % (0-5); MCH 30.1 pg (26.0-34.0); MCV 93.9 fL (80.0-100.0); MEAN PLATELET VOLUME 10.1 fL (7.4-10.4); MONOCYTES 6.6 % (2-11); NEUTROPHILS 66.5 % (40-80); PLATELET COUNT 164 10x3/uL (130-400); RBC 4.09 10x6/uL (4.00-5.40); WBC 7.6 10x3/uL (4.8-10.8)
[2019-11-29 23:32] LABS: CALC OSMOLALITY 272 mosm/kg (275-300); CALCIUM 8.4 mg/dL (8.5-10.1); CARBON DIOXIDE 32.1 mmol/L (21.0-32.0); CHLORIDE - SERUM 102 mmol/L (98-107); CREATININE - SERUM 0.9 mg/dL (0.6-1.3); GLUCOSE 109 mg/dL (74-106); POTASSIUM - SERUM 4.2 mmol/L (3.5-5.1); SODIUM 136 mmol/L (136-145); UREA NITROGEN 12 mg/dL (7-18); eGFR NON AFRICAN AMERICAN 68 mL/min (90-120)
[2019-11-29 23:35] LABS: APTT 24.5 SECONDS (22.8-39.4); INR 0.86 (0.85-1.17); PROTIME 11.7 SECONDS (11.6-15.0)
[2019-11-30 00:03] LABS: ALBUMIN 3.7 g/dL (3.4-5.0); ALKALINE PHOSPHATASE 65 U/L (30-120); ALT (SGPT) 26 U/L (10-68); BILIRUBIN - TOTAL 0.29 mg/dL (0.2-1.3); CKMB 1.6 U/L (0.0-3.6); CREATINE KINASE 62 UL (21-215); PRO BNP 79 pg/mL (0-125); PROTEIN - SERUM 7.2 g/dL (6.4-8.2); TROPONIN-I < 0.017 ng/mL (0.000-0.060)
--- NOTE | 2019-11-30 03:12 | NUR ---
REPORT CALLED FROM KUSH IN ER.
--- NOTE | 2019-11-30 03:24 | NUR ---
PT ARRIVED TO ROOM 2111 FROM ER. ALERT/ORIENTED. CURRENTLY UP IN BATHROOM. SAYS SHE HAD AN EPISODE OF INCONTINENCE AND IS CLEANING HERSELF. ADMISSION HISTORY AND ASSESSMENT COMPLETED. HOME MEDS REVIEWED AND UPDATED. PT TEACHING ON SAFETY, PLAN OF CARE/INTERVENTIONS. USE OF CALL LIGHT.
[2019-11-30 03:37] VITALS: BP 125/78; BMI 21.0; BMI 23.1
[2019-11-30 09:00] VITALS: BP 114/72
[2019-11-30 13:47] VITALS: BP 130/79
--- NOTE | 2019-11-30 17:49 | NUR ---
PT REPROTS SHE FEELS WELL NEW IV PLACED TO LEFT FOREARM. COTNINUES ON IV SOLUMEDROL. NO ACUTE DISTRESS PT DENIES NEED WILL CONTINUE TO MONITOR.
[2019-11-30 18:07] VITALS: BP 118/78
--- NOTE | 2019-11-30 19:48 | NUR ---
RECIEVED SITTING UP IN MIDDLE OF THE BED. ALERT AND ORIENTED X4. UP AD BEKA TO B/R. O2@ 2 LITERS PER N/C IN PLACE. IV TO LT FA SL. DENIES ANY NEEDS AT THIS TIME.
[2019-11-30 20:00] VITALS: BP 103/58
[2019-12-01] VITALS: BP 129/69
[2019-12-01 04:00] VITALS: BP 104/55
[2019-12-01 06:32] LABS: BASOPHILS 0 % (0-2); EOSINOPHILS 0 % (0-7); HEMATOCRIT 35.7 % (36.0-48.0); HEMOGLOBIN 11.6 g/dL (12-16); IMMATURE GRANULOCYTES 0.2 % (0-5); LYMPHOCYTES 10.9 % (15-50); MCH 29.7 pg (26.0-34.0); MCHC 32.5 g/dL (31.0-37.0); MEAN PLATELET VOLUME 10.3 fL (7.4-10.4); MONOCYTES 9.6 % (2-11); NEUTROPHILS 79.3 % (40-80); RDW 13.4 % (11.5-14.5)
[2019-12-01 06:35] LABS: MCV 91.5 fL (80.0-100.0); PLATELET COUNT 216 10x3/uL (130-400); WBC 10.6 10x3/uL (4.8-10.8)
[2019-12-01 07:02] LABS: ALBUMIN 3.6 g/dL (3.4-5.0); ALKALINE PHOSPHATASE 61 U/L (30-120); ALT (SGPT) 24 U/L (10-68); BILIRUBIN - TOTAL 0.47 mg/dL (0.2-1.3); CALC OSMOLALITY 269 mosm/kg (275-300); CALCIUM 8.4 mg/dL (8.5-10.1); CARBON DIOXIDE 30.3 mmol/L (21.0-32.0); CHLORIDE - SERUM 99 mmol/L (98-107); GLUCOSE 123 mg/dL (74-106); MAGNESIUM - SERUM 2.2 mg/dL (1.8-2.4); POTASSIUM - SERUM 4.4 mmol/L (3.5-5.1); PROTEIN - SERUM 6.6 g/dL (6.4-8.2); SODIUM 135 mmol/L (136-145); UREA NITROGEN 11 mg/dL (7-18)
[2019-12-01 07:03] LABS: CREATININE - SERUM 0.6 mg/dL (0.6-1.3); eGFR NON AFRICAN AMERICAN > 90 mL/min (90-120)
--- NOTE | 2019-12-01 08:18 | NUR ---
AM MEDS GIVEN AT THIS TIME. ALSO GAVE 650MG OF TYLENOL FOR PAIN LEVEL OF 6/10. PT IN BED, FIXING TO EAT BREAFAST. PT A/O X4, RESP EVEN AND UNLABORED ON 2L NC. LT FA IV SL. PT DENIES ANY NEED AT THIS TIME. CALL LIGHT IN REACH, NAD NOTED, WILL CONTINUE PLAN OF CARE.
[2019-12-01 09:35] VITALS: BP 100/54
--- NOTE | 2019-12-01 13:44 | NUR ---
650MG OF TYLENOL GIVEN FOR PAIN LEVEL OF 6/10. PT DENIES ANY OTHER NEEDS AT THIS TIME. CALL [facility] IN REACH, NAD NOTED, WILL CONTINUE TO MONITOR.
[2019-12-01 14:13] VITALS: BMI 23.0
[2019-12-01 14:33] VITALS: BP 123/71
[2019-12-01 19:01] VITALS: BP 125/70
--- NOTE | 2019-12-01 19:28 | NUR ---
RECEIVED BEDSIDE REPORT. PATIENT IS ALERT AND ORIENTED, SITTING UP IN BED. RESPIRATIONS ARE EVEN AND UNLABORED. NO S/S OF DISTRESS. NO C/O PAIN. CALL LIGHT WITHIN REACH. WILL CPOC.
[2019-12-01 20:00] VITALS: BP 118/58
[2019-12-02] VITALS: BP 112/70
[2019-12-02 04:00] VITALS: BP 113/60
[2019-12-02 06:16] LABS: BASOPHILS 0 % (0-2); EOSINOPHILS 0 % (0-7); HEMATOCRIT 34.4 % (36.0-48.0); HEMOGLOBIN 11.1 g/dL (12-16); IMMATURE GRANULOCYTES 0.3 % (0-5); LYMPHOCYTES 9.9 % (15-50); MCH 29.7 pg (26.0-34.0); MCHC 32.3 g/dL (31.0-37.0); MEAN PLATELET VOLUME 10.8 fL (7.4-10.4); MONOCYTES 3.9 % (2-11); NEUTROPHILS 85.9 % (40-80); PLATELET COUNT 199 10x3/uL (130-400); RBC 3.74 10x6/uL (4.00-5.40); RDW 13.4 % (11.5-14.5)
[2019-12-02 06:37] LABS: ALBUMIN 3.6 g/dL (3.4-5.0); ALKALINE PHOSPHATASE 54 U/L (30-120); ALT (SGPT) 26 U/L (10-68); BILIRUBIN - TOTAL 0.58 mg/dL (0.2-1.3); CALC OSMOLALITY 266 mosm/kg (275-300); CALCIUM 8.4 mg/dL (8.5-10.1); CHLORIDE - SERUM 98 mmol/L (98-107); CREATININE - SERUM 0.5 mg/dL (0.6-1.3); GLUCOSE 120 mg/dL (74-106); MAGNESIUM - SERUM 2.1 mg/dL (1.8-2.4); POTASSIUM - SERUM 4.5 mmol/L (3.5-5.1); PROTEIN - SERUM 6.4 g/dL (6.4-8.2); SODIUM 133 mmol/L (136-145); UREA NITROGEN 13 mg/dL (7-18); eGFR NON AFRICAN AMERICAN > 90 mL/min (90-120)
[2019-12-02 09:24] VITALS: BP 119/78
[2019-12-02 11:00] VITALS: BP 131/72
[2019-12-02 15:00] VITALS: BP 145/64
[2019-12-02 20:00] VITALS: BP 123/72
[2019-12-03] VITALS: BP 113/61
[2019-12-03 04:00] VITALS: BP 134/73
[2019-12-03 06:18] LABS: BASOPHILS 0 % (0-2); EOSINOPHILS 0 % (0-7); HEMATOCRIT 34.9 % (36.0-48.0); HEMOGLOBIN 11.6 g/dL (12-16); IMMATURE GRANULOCYTES 0.2 % (0-5); MCH 29.7 pg (26.0-34.0); MCHC 33.2 g/dL (31.0-37.0); MEAN PLATELET VOLUME 10.6 fL (7.4-10.4); MONOCYTES 4.4 % (2-11); NEUTROPHILS 84.4 % (40-80); RDW 12.9 % (11.5-14.5); WBC 8.2 10x3/uL (4.8-10.8)
[2019-12-03 06:33] LABS: MCV 89.5 fL (80.0-100.0); PLATELET COUNT 239 10x3/uL (130-400)
[2019-12-03 06:52] LABS: ALBUMIN 3.4 g/dL (3.4-5.0); ALKALINE PHOSPHATASE 57 U/L (30-120); ALT (SGPT) 22 U/L (10-68); BILIRUBIN - TOTAL 0.96 mg/dL (0.2-1.3); CALC OSMOLALITY 255 mosm/kg (275-300); CALCIUM 8.8 mg/dL (8.5-10.1); CARBON DIOXIDE 28.6 mmol/L (21.0-32.0); CHLORIDE - SERUM 93 mmol/L (98-107); CREATININE - SERUM 0.5 mg/dL (0.6-1.3); GLUCOSE 120 mg/dL (74-106); PROTEIN - SERUM 6.7 g/dL (6.4-8.2); SODIUM 127 mmol/L (136-145); UREA NITROGEN 12 mg/dL (7-18); eGFR NON AFRICAN AMERICAN > 90 mL/min (90-120)
[2019-12-03 08:53] VITALS: BP 136/69
--- NOTE | 2019-12-03 12:05 | NUR ---
I have reviewed this patient and I concur with the Shift Assessment completed by the Licensed Practical Nurse today this shift.
--- NOTE | 2019-12-03 12:35 | MORECARE ---
CASE MANAGEMENT DISCHARGE SUMMARY PATIENT: LIZZY PATTEN UNIT: [id number] ADM DATE: 11/30/19 AGE: 59 : 62 SEX: F ROOM/BED: D.[facility] AUTHOR: ALEC MARTINES PHYSICIAN: REFERRING PHYSICIAN: MEMO MACKENZIE MD DATE OF SERVICE: 12/03/19 Discharge Plan Patient Name: LIZZY PATTEN [facility] [facility] 1960 Planned Disposition: Home Anticipated Discharge Date: Discharge Date: Expected LOS: Initial Reviewer: [email or web address] Initial Review Date: 12/03/2019 Generated: 12/03/19 1:34 pm DCPIA - Discharge Planning Initial Assessment Updated by [email or web address]: Yulissa Cotto on 12/03/19 12:33 pm * Is the patient Alert and Oriented? Yes * How many steps to enter\exit or inside your home? Ramp/0 * PCP Dr. Soren Carerra * [facility] * Preadmission Environment Home with Family * ADLs Partial Dependent * Partial ADLs (Assistance needed) Bathing * Equipment Cane Nebulizer Other Oxygen Walker * Other Equipment Portable oxygen DME company is [facility] * List name and contact numbers for known caregivers / representatives who currently or will assist patient after discharge: Mami Patten - DTR - [phone] Gordy Patten - [phone] * Verbal permission to speak to the caregivers and representatives has been obtained from the patient. Yes * Community resources currently utilized Private Duty Care * Please name any agencies selected above. Visiting Nurses * Additional services required to return to the preadmission environment? No * Can the patient safely return to the preadmission environment? Yes * Has this patient been hospitalized within the prior 30 days at any hospital? No Patient Name: LIZZY PATTEN Page [phone] at 1235 All edits/amendments must be made on the electronic document DICTATION DATE: 12/03/19 1234 BIOMEDICAL ENGINEERING PROFESSOR: JENNIFER 12/03/19 1234 RPT#: [id number] DC DATE: STATUS: ADM IN [facility] [address] [place] [address] END OF REPORT
--- NOTE | 2019-12-03 12:37 | NUR ---
ANOTHER NURSE WAS GETTING VS GENA CURRY WAS IN ROOM. PT'S HR SHOWING 115. GENA CURRY STATED TO GET EKG. EKG DONE AND SCANNED AND IN CHART. ASKED RATING EXAMINER FOR MONITOR FOR PT ANDS SHE STATES SHE HAS NONE TO GIVE OUT.
--- NOTE | 2019-12-03 12:43 | MORECARE ---
CASE MANAGEMENT DISCHARGE SUMMARY PATIENT: LIZZY PATTEN UNIT: [id number] ADM DATE: 11/30/19 AGE: 59 : 62 SEX: F ROOM/BED: D.6542 AUTHOR: ALEC MARTINES PHYSICIAN: REFERRING PHYSICIAN: MEMO MACKENZIE MD DATE OF SERVICE: 12/03/19 Discharge Plan Patient Name: LIZZY PATTEN Facility: [facility]:[place] : 1960 Planned Disposition: Home Anticipated Discharge Date: Discharge Date: Expected LOS: Initial Reviewer: [email or web address] Initial Review Date: 12/03/2019 Generated: 12/03/19 1:43 pm Comments DCP- Discharge Planning Updated by [email or web address]: Yulissa Cotto on 12/03/19 11:[address] Patient Name: LIZZY PATTEN Admission Status: ER Accout number: [id number] Admission Date: 11-30-2019 : 1960 Admission Diagnosis:SHORTNESS OF BREATH Attending: MEMO MACKENZIE Current LOS: 3 Anticipated DC Date: Planned Disposition: Home Primary Insurance: MEDICAID [place] Discharge Planning Comments: CM met with patient to complete initial dc planning assessment. CM educated patient on the CM role and verbal consent given by patient to complete assessment. Patient lives at home. States her children are home from college and staying with her, although they work during the day. At discharge patient plans to return and feels this is a safe discharge. CM discussed availability of home health, rehab services, and medical equipment. Patient denied known discharge needs at this time. States she has a career law clerk that comes in for 1 hour/5 days a week and assists with bathing and shopping. States that she walks unaided, no longer drives, but family drives her where she needs to go. She has not had routine follow up with her PCP because of transportation issues. I provided her with the number to the [facility] bus and instructions. CM will continue to follow and will assist as needed with dc plans/needs. Intensive Care Unit Registered Nurse: Yulissa Cotto DCPIA - Discharge Planning Initial Assessment Updated by [email or web address]: Yulissa Cotto on 12/03/19 12:33 pm * Is the patient Alert and Oriented? Yes * How many steps to enter\exit or inside your home? Ramp/0 * PCP Dr. Soren Carrera * Pharm[facility] * Preadmission Environment Home with Family * ADLs Partial Dependent * Partial ADLs (Assistance needed) Bathing * Equipment Cane Nebulizer Other Oxygen Walker * Other Equipment Portable oxygen DME company is [facility] * List name and contact numbers for known caregivers / representatives who currently or will assist patient after discharge: Mami Patten DTR - [phone] Gordy Patten [phone] * Verbal permission to speak to the caregivers and representatives has been obtained from the patient. Yes * Community resources currently utilized Private Duty Care * Please name any agencies selected above. Visiting Nurses * Additional services required to return to the preadmission environment? No * Can the patient safely return to the preadmission environment? Yes * Has this patient been hospitalized within the prior 30 days at any hospital? No Last DP export: 12/03/19 11:35 a Patient Name: LIZZY PATTEN Page [phone] at 1243 All edits/amendments must be made on the electronic document DICTATION DATE: 12/03/19 124 TELEPHONE ORDER DISPATCHER: JENNIFER 12/03/19 1243 RPT#: [id number] DC DATE: STATUS: ADM IN [facility] [address] [place] [address] END OF REPORT
[2019-12-03 13:03] VITALS: BP 135/61
--- NOTE | 2019-12-03 13:07 | NUR ---
Nutrition Follow-up: Pt reports that she was eating well up until yesterday evening. Did not eat dinner last night or breakfast this AM 2/2 nausea; denies vomiting. Requests Boost for lunch today. Diet: Regular Wt: 125# (12/01); 126# (11/29) Last BM: 12/02 Labs noted: Na 127, Glu 120 Meds noted: Solumedrol, Protonix, electrolyte protocol -Encourage PO intake and honor food preferences. -Boost sent with lunch today per pt request. -Monitor wt; noted daily wts ordered. -RD following.
[2019-12-03 16:37] VITALS: BP 132/69
[2019-12-03 20:00] VITALS: BP 127/69
--- NOTE | 2019-12-04 04:37 | NUR ---
I have reviewed this patient and I concur with the Shift Assessment completed by the Licensed Practical Nurse today this shift.
[2019-12-04 05:24] LABS: BASOPHILS 0.1 % (0-2); EOSINOPHILS 0 % (0-7); HEMATOCRIT 33.9 % (36.0-48.0); HEMOGLOBIN 11.6 g/dL (12-16); IMMATURE GRANULOCYTES 0.4 % (0-5); LYMPHOCYTES 13.5 % (15-50); MCH 30.4 pg (26.0-34.0); MCHC 34.2 g/dL (31.0-37.0); MCV 88.7 fL (80.0-100.0); MEAN PLATELET VOLUME 10.2 fL (7.4-10.4); MONOCYTES 8.6 % (2-11); NEUTROPHILS 77.4 % (40-80); PLATELET COUNT 223 10x3/uL (130-400); RBC 3.82 10x6/uL (4.00-5.40); RDW 12.6 % (11.5-14.5); WBC 8.3 10x3/uL (4.8-10.8)
[2019-12-04 05:39] LABS: ALBUMIN 3.2 g/dL (3.4-5.0); ALKALINE PHOSPHATASE 55 U/L (30-120); ALT (SGPT) 24 U/L (10-68); CALC OSMOLALITY 251 mosm/kg (275-300); CALCIUM 8.5 mg/dL (8.5-10.1); CARBON DIOXIDE 30.6 mmol/L (21.0-32.0); CHLORIDE - SERUM 90 mmol/L (98-107); CREATININE - SERUM 0.5 mg/dL (0.6-1.3); GLUCOSE 108 mg/dL (74-106); POTASSIUM - SERUM 4.6 mmol/L (3.5-5.1); PROTEIN - SERUM 6.3 g/dL (6.4-8.2); SODIUM 124 mmol/L (136-145); UREA NITROGEN 14 mg/dL (7-18); eGFR NON AFRICAN AMERICAN > 90 mL/min (90-120)
[2019-12-04 08:50] VITALS: BP 144/82
[2019-12-04 11:00] VITALS: BP 141/86
--- NOTE | 2019-12-04 11:05 | NUR ---
ASSISTED PT TO BATHROOM. PCT FRANKO ASSISTED BACK TO BED. WHILE GOING TO GET LINENS CAME BACK AND PT FOUND ON FLOOR BESIDE BED IN STATE OF TENSION AND ANXIETY. UN ABLE TO COMMUNICATE WELL. MANUAL LIFT BACK TO BED, RAPID RESPONSE CALLED.
[2019-12-04 15:00] VITALS: BP 145/70
[2019-12-04 15:41] VITALS: Ht 157.5 cm; Wt 56.5 kg
[2019-12-04 20:00] VITALS: BP 140/64
[2019-12-04 20:29] LABS: CALC OSMOLALITY 244 mosm/kg (275-300); CALCIUM 8.2 mg/dL (8.5-10.1); CARBON DIOXIDE 26.2 mmol/L (21.0-32.0); CHLORIDE - SERUM 87 mmol/L (98-107); CREATININE - SERUM 0.6 mg/dL (0.6-1.3); GLUCOSE 92 mg/dL (74-106); SODIUM 121 mmol/L (136-145); UREA NITROGEN 16 mg/dL (7-18); eGFR NON AFRICAN AMERICAN > 90 mL/min (90-120)
[2019-12-04 20:36] LABS: POTASSIUM - SERUM 3.8 mmol/L (3.5-5.1)
[2019-12-04 21:20] LABS: POTASSIUM - URINE 58.9 MMOL/L (12.0-62.0)
[2019-12-05] VITALS: BP 133/76
[2019-12-05 04:00] VITALS: BP 152/90
--- NOTE | 2019-12-05 05:12 | NUR ---
I have reviewed this patient and I concur with the Shift Assessment completed by the Licensed Practical Nurse today this shift.
[2019-12-05 05:20] LABS: BASOPHILS 0 % (0-2); EOSINOPHILS 0 % (0-7); HEMATOCRIT 32.9 % (36.0-48.0); HEMOGLOBIN 11.4 g/dL (12-16); IMMATURE GRANULOCYTES 0.7 % (0-5); MCH 30.4 pg (26.0-34.0); MCHC 34.7 g/dL (31.0-37.0); MCV 87.7 fL (80.0-100.0); MEAN PLATELET VOLUME 10.3 fL (7.4-10.4); MONOCYTES 6.9 % (2-11); NEUTROPHILS 81.4 % (40-80); PLATELET COUNT 227 10x3/uL (130-400); RBC 3.75 10x6/uL (4.00-5.40); RDW 12.4 % (11.5-14.5); WBC 8.5 10x3/uL (4.8-10.8)
[2019-12-05 06:07] LABS: ALBUMIN 3.3 g/dL (3.4-5.0); ALKALINE PHOSPHATASE 50 U/L (30-120); ALT (SGPT) 25 U/L (10-68); BILIRUBIN - TOTAL 1.15 mg/dL (0.2-1.3); CARBON DIOXIDE 25.8 mmol/L (21.0-32.0); CHLORIDE - SERUM 86 mmol/L (98-107); CREATININE - SERUM 0.5 mg/dL (0.6-1.3); GLUCOSE 75 mg/dL (74-106); MAGNESIUM - SERUM 1.8 mg/dL (1.8-2.4); POTASSIUM - SERUM 4.1 mmol/L (3.5-5.1); PROTEIN - SERUM 6.2 g/dL (6.4-8.2); UREA NITROGEN 15 mg/dL (7-18); eGFR NON AFRICAN AMERICAN > 90 mL/min (90-120)
[2019-12-05 06:25] LABS: CALC OSMOLALITY 239 mosm/kg (275-300)
[2019-12-05 06:26] LABS: SODIUM 119 mmol/L (136-145)
--- NOTE | 2019-12-05 07:00 | NUR ---
BEDSIDE REPORT RECEIVED. SHIFT ASSESSMENT COMPLETED PER FLOWSHEET, SEE FLOWSHEET FOR INFORMATION. PT DENIES ANY PAIN OR DISTRESS AT THIS TIME. EXPLAINED IMPORTANCE OF USING CALL LIGHT AND HAVING STAFF ASSISTANCE ON STANDING AND WALKING. PT VERBALIZED UNDERSTANDING. AT BEDSIDE. WILL CONT TO MONITOR. NO ACUTE S/S OF DISTRESS NOTED.
[2019-12-05 08:00] VITALS: BP 134/73
[2019-12-05 12:00] VITALS: BP 158/91
--- NOTE | 2019-12-05 13:24 | NUR ---
Nutrition Follow-up: Pt still reporting mild nausea this AM but stated that she did eat some breakfast. Diet: Regular, 1200 cc fluid restriction No new wt; last wt: 125# (12/01) Labs noted: Na 119, Ca 8.0, Alb 3.3 Meds noted: Sodium Chloride, Solumedrol, Protonix, Lasix, NS @ 75, electrolyte protocol -Encourage PO intake and honor food preferences within diet restrictions. -Offer nutrition supplements. -Need new wt; noted daily wts ordered. -RD following.
--- NOTE | 2019-12-05 19:20 | NUR ---
BEDSIDE REPORT RECEIVED, PT CARE ASSUMED. PT SITTING UP IN BED WITH EYES CLOSED, RR EVEN AND NONLABORED, NO S/S OF DISTRESS, BIPAP ON, AROUSES EASILY TO VOICE. INTRODUCED SELF AND WROTE NAME ON BOARD. PT ORIENTED X4, DENIES ANY NEEDS AT THIS TIME. BED IN LOWEST, SRX2, CALL LIGHT WITHIN REACH. WILL CTM.
[2019-12-05 20:30] VITALS: BP 147/82
[2019-12-06 00:30] VITALS: BP 111/69
[2019-12-06 04:30] VITALS: BP 132/67
[2019-12-06 05:11] LABS: BASOPHILS 0 % (0-2); EOSINOPHILS 0 % (0-7); HEMATOCRIT 31.9 % (36.0-48.0); HEMOGLOBIN 11.2 g/dL (12-16); IMMATURE GRANULOCYTES 0.7 % (0-5); MCH 30.5 pg (26.0-34.0); MCHC 35.1 g/dL (31.0-37.0); MCV 86.9 fL (80.0-100.0); MEAN PLATELET VOLUME 9.7 fL (7.4-10.4); MONOCYTES 10.7 % (2-11); NEUTROPHILS 76.6 % (40-80); PLATELET COUNT 221 10x3/uL (130-400); RBC 3.67 10x6/uL (4.00-5.40); RDW 12.5 % (11.5-14.5); WBC 8.3 10x3/uL (4.8-10.8)
[2019-12-06 05:25] LABS: CALC OSMOLALITY 245 mosm/kg (275-300); CALCIUM 7.9 mg/dL (8.5-10.1); CARBON DIOXIDE 28.4 mmol/L (21.0-32.0); CREATININE - SERUM 0.3 mg/dL (0.6-1.3); GLUCOSE 80 mg/dL (74-106); POTASSIUM - SERUM 3.8 mmol/L (3.5-5.1); SODIUM 122 mmol/L (136-145); UREA NITROGEN 14 mg/dL (7-18)
[2019-12-06 05:26] LABS: CHLORIDE - SERUM 85 mmol/L (98-107); eGFR NON AFRICAN AMERICAN > 90 mL/min (90-120)
--- NOTE | 2019-12-06 07:15 | NUR ---
RECEIVED PT IN BED EYES CLOSED RESP PER BIPAP SKIN W/D COLOR WNL NAD NOTED
[2019-12-06 13:04] VITALS: BP 149/75
--- NOTE | 2019-12-06 14:32 | NUR ---
REPORTED TO DR LOWRY THAT PT'S NA+ WAS 119 NEW ORDERS RECEIVED AND NOTED
[2019-12-06 18:00] VITALS: BP 136/78
--- NOTE | 2019-12-06 19:25 | NUR ---
BEDSIDE REPORT RECEIVED, PT CARE ASSUMED. WROTE NAME ON BAORD. PT SITTING UP IN BED, WATCHING TV, AAOX4. DENIES ANY NEEDS AT THIS TIME. BED IN LOWEST, SRX3, CALL LIGHT WITHIN REACH. WILL CTM.
[2019-12-06 20:30] VITALS: BP 140/69
[2019-12-07 00:30] VITALS: BP 125/83
[2019-12-07 04:30] VITALS: BP 130/72
[2019-12-07 04:57] LABS: HEMATOCRIT 33.4 % (36.0-48.0); HEMOGLOBIN 11.4 g/dL (12-16); LYMPHOCYTES 11.1 % (15-50); MCH 29.9 pg (26.0-34.0); MCHC 34.1 g/dL (31.0-37.0); MCV 87.7 fL (80.0-100.0); MEAN PLATELET VOLUME 9.6 fL (7.4-10.4); NEUTROPHILS 78.2 % (40-80); PLATELET COUNT 226 10x3/uL (130-400); RBC 3.81 10x6/uL (4.00-5.40); RDW 12.6 % (11.5-14.5); WBC 8.1 10x3/uL (4.8-10.8)
[2019-12-07 05:31] LABS: GLUCOSE 109 mg/dL (74-106); POTASSIUM - SERUM 3.3 mmol/L (3.5-5.1); UREA NITROGEN 12 mg/dL (7-18)
[2019-12-07 05:33] LABS: CALC OSMOLALITY 242 mosm/kg (275-300); CREATININE - SERUM 0.5 mg/dL (0.6-1.3); eGFR NON AFRICAN AMERICAN > 90 mL/min (90-120)
[2019-12-07 05:34] LABS: CHLORIDE - SERUM 82 mmol/L (98-107); SODIUM 120 mmol/L (136-145)
--- NOTE | 2019-12-07 07:10 | NUR ---
REPORT RECEIVED FROM MANAGER FLIGHT AND PATIENT CARE ASSUMED. PATIENT LYING IN BED ON BACK AWAKE, ALERT AND ORIENTED X 3. PATIENT IS STABLE AND VSS. PATIENT DENIES ANY NEEDS OR PAIN. WILL CONTINUE WITH PLAN OF CARE. SR UP X 2 BED IN LOW POSITION AND CALL LIGHT IN REACH.
--- NOTE | 2019-12-07 11:01 | NUR ---
PATIENT IS STABLE AND VSS. PATIENT BACK TO BI-PAP. UP TO BS COMMODE. ASSESSEMNT COMPLETED. WILL CONTINUE TO MONITOR. SR UPX 2 BED IN LOW POSITION AND CALL LIGHT IN REACH.
[2019-12-07 15:11] VITALS: BP 162/78
--- NOTE | 2019-12-07 17:50 | NUR ---
PATIENT PULLED OUT IV. IV RESITED TO RT FOREARM 22 G X 3 ATTEMPTS.
[2019-12-07 17:55] VITALS: BP 129/97
--- NOTE | 2019-12-07 19:15 | NUR ---
BEDSIDE REPORT RECEIVED, PT CARE ASSUMED. WROTE NAME ON BOARD. PT SITTING UP IN BED, WATCHING TV, AAOX4. DENIES ANY NEEDS AT THIS TIME. BED IN LOWEST, SRX3, CALL LIGHT WITHIN REACH. WILL CTM.
[2019-12-07 20:30] VITALS: BP 144/76
[2019-12-08 00:30] VITALS: BP 138/83
[2019-12-08 04:30] VITALS: BP 154/67
[2019-12-08 06:37] LABS: HEMOGLOBIN 12.2 g/dL (12-16); LYMPHOCYTES 20.1 % (15-50); MCH 30.6 pg (26.0-34.0); MCHC 34.9 g/dL (31.0-37.0); MCV 87.7 fL (80.0-100.0); MEAN PLATELET VOLUME 9.8 fL (7.4-10.4); PLATELET COUNT 237 10x3/uL (130-400); RBC 3.99 10x6/uL (4.00-5.40); RDW 12.2 % (11.5-14.5); WBC 7.5 10x3/uL (4.8-10.8)
[2019-12-08 06:47] LABS: CALC OSMOLALITY 241 mosm/kg (275-300); CALCIUM 8.1 mg/dL (8.5-10.1); CARBON DIOXIDE 37.3 mmol/L (21.0-32.0); CREATININE - SERUM 0.4 mg/dL (0.6-1.3); GLUCOSE 85 mg/dL (74-106); POTASSIUM - SERUM 3.4 mmol/L (3.5-5.1); SODIUM 121 mmol/L (136-145); UREA NITROGEN 10 mg/dL (7-18); eGFR NON AFRICAN AMERICAN > 90 mL/min (90-120)
[2019-12-08 07:27] LABS: CHLORIDE - SERUM 82 mmol/L (98-107)
[2019-12-08 09:51] VITALS: BP 142/79
--- NOTE | 2019-12-08 10:19 | NUR ---
REPORT RECIEVED. PT SITTING UP IN BED. RR EVEN AND UNLABORED ON 4L. BED LOCKED AND IN LOWEST POSITION, CALL LIGHT WITHIN REACH. WILL CTM
[2019-12-08 13:18] VITALS: BP 119/69
[2019-12-08 16:00] VITALS: BP 173/93
--- NOTE | 2019-12-08 16:24 | NUR ---
I have reviewed this patient and I concur with the Shift Assessment completed by the Licensed Practical Nurse today this shift.
--- NOTE | 2019-12-08 19:35 | NUR ---
PT REMOVES BIPAP AND MAKES SOME SOUNDS I CAN NOT [id number] I REPLACED BIPAP BED IS LOW AND LOCKED
[2019-12-08 21:51] VITALS: BP 149/72
[2019-12-09] VITALS (7 sets, daily range): BP systolic 125–155; BP diastolic 61–75
--- NOTE | 2019-12-09 03:03 | NUR ---
I have reviewed this patient and I concur with the Shift Assessment completed by the Licensed Practical Nurse today this shift.
[2019-12-09 07:39] LABS: BASOPHILS 0 % (0-2); EOSINOPHILS 0.1 % (0-7); HEMATOCRIT 33.2 % (36.0-48.0); HEMOGLOBIN 11.5 g/dL (12-16); IMMATURE GRANULOCYTES 0.6 % (0-5); LYMPHOCYTES 16.2 % (15-50); MCH 30.4 pg (26.0-34.0); MCHC 34.6 g/dL (31.0-37.0); MCV 87.8 fL (80.0-100.0); MEAN PLATELET VOLUME 10.5 fL (7.4-10.4); MONOCYTES 10.3 % (2-11); NEUTROPHILS 72.8 % (40-80); PLATELET COUNT 238 10x3/uL (130-400); RBC 3.78 10x6/uL (4.00-5.40); RDW 12.3 % (11.5-14.5); WBC 8.3 10x3/uL (4.8-10.8)
[2019-12-09 07:52] LABS: CALCIUM 8.1 mg/dL (8.5-10.1); CARBON DIOXIDE 31.6 mmol/L (21.0-32.0); CHLORIDE - SERUM 87 mmol/L (98-107); GLUCOSE 80 mg/dL (74-106); SODIUM 125 mmol/L (136-145)
[2019-12-09 07:53] LABS: CALC OSMOLALITY 248 mosm/kg (275-300); CREATININE - SERUM 0.2 mg/dL (0.6-1.3); POTASSIUM - SERUM 3.5 mmol/L (3.5-5.1); UREA NITROGEN 7 mg/dL (7-18); eGFR NON AFRICAN AMERICAN > 90 mL/min (90-120)
--- NOTE | 2019-12-09 07:55 | NUR ---
REPORT RECIEVED. PT SITTING UP IN BED. RR EVEN AND UNLABORED ON 4L NC. SHE HAS A L WRIST PIV THAT INFUSING NS @ 15. BED LOCKED AND IN LOWEST POSITION, CALL LIGHT WITHIN REACH. WILL CTM
--- NOTE | 2019-12-09 11:30 | NUR ---
Nutrition Follow-up: Pt reports not eating this AM 2/2 dizziness but states that she ate >50% of meals yesterday. Likes Boost. Diet: Regular Wt: 123.4# (12/08); 126# (11/29) Last BM: 12/07 Labs noted: Na 125, Ca 8.1 Meds noted: Sodium Chloride, Solumedrol, Protonix, electrolyte protocol -Encourage PO intake and honor food preferences within diet restrictions. -+Boost. -Monitor wt; noted daily wts ordered. -RD following.
--- NOTE | 2019-12-09 17:51 | NUR ---
I have reviewed this patient and I concur with the Shift Assessment completed by the Licensed Practical Nurse today this shift.
--- NOTE | 2019-12-09 19:26 | NUR ---
PT AWAKE AND ALERT WATER ASKED FOR AND GOTTEN BED LOW AND LOCKED PT WITH CALL LIGHT
--- NOTE | 2019-12-09 23:50 | NUR ---
EXPLAINED BENIFITS OF BIPAP COMPLIANCE HOWEVER PT REFUSES TO WEAR
--- NOTE | 2019-12-10 01:08 | NUR ---
I have reviewed this patient and I concur with the Shift Assessment completed by the Licensed Practical Nurse today this shift.
[2019-12-10 04:05] VITALS: BP 137/76
[2019-12-10 06:29] LABS: BASOPHILS 0 % (0-2); EOSINOPHILS 0 % (0-7); HEMATOCRIT 33.1 % (36.0-48.0); HEMOGLOBIN 11.3 g/dL (12-16); IMMATURE GRANULOCYTES 0.4 % (0-5); LYMPHOCYTES 6.7 % (15-50); MCH 30.2 pg (26.0-34.0); MCHC 34.1 g/dL (31.0-37.0); MCV 88.5 fL (80.0-100.0); MEAN PLATELET VOLUME 9.6 fL (7.4-10.4); MONOCYTES 3.8 % (2-11); NEUTROPHILS 89.1 % (40-80); PLATELET COUNT 243 10x3/uL (130-400); RBC 3.74 10x6/uL (4.00-5.40); RDW 12.5 % (11.5-14.5); WBC 7.9 10x3/uL (4.8-10.8)
[2019-12-10 06:39] LABS: CALC OSMOLALITY 259 mosm/kg (275-300); CALCIUM 8.1 mg/dL (8.5-10.1); CARBON DIOXIDE 35.3 mmol/L (21.0-32.0); CHLORIDE - SERUM 92 mmol/L (98-107); GLUCOSE 111 mg/dL (74-106); POTASSIUM - SERUM 3.6 mmol/L (3.5-5.1); SODIUM 130 mmol/L (136-145); UREA NITROGEN 7 mg/dL (7-18)
[2019-12-10 06:42] LABS: CREATININE - SERUM 0.4 mg/dL (0.6-1.3); eGFR NON AFRICAN AMERICAN > 90 mL/min (90-120)
[2019-12-10 08:11] VITALS: BP 147/71
--- NOTE | 2019-12-10 08:34 | MORECARE ---
CASE MANAGEMENT DISCHARGE SUMMARY PATIENT: LIZZY PATTEN UNIT: [id number] ADM DATE: 11/30/19 AGE: 59 : 62 SEX: F ROOM/BED: D.4149 AUTHOR: ALEC MARTINES PHYSICIAN: REFERRING PHYSICIAN: MEMO MACKENZIE MD DATE OF SERVICE: 12/10/19 Discharge Plan Patient Name: LIZZY PATTEN Facility: [facility]:[place] : 1960 Planned Disposition: Home Anticipated Discharge Date: Discharge Date: Expected LOS: Initial Reviewer: [email or web address] Initial Review Date: 12/03/2019 Generated: 12/10/19 9:34 am DCP- Discharge Planning Updated by [email or web address]: Yulissa Cotto on 12/03/19 11:[address] Patient Name: LIZZY PATTEN Admission Status: ER Accout number: [id number] Admission Date: 11-30-2019 : 1960 Admission Diagnosis:SHORTNESS OF BREATH Attending: MEMO MACKENZIE Current LOS: 3 Anticipated DC Date: Planned Disposition: Home Primary Insurance: MEDICAID [place] Discharge Planning Comments: CM met with patient to complete initial dc planning assessment. CM educated patient on the CM role and verbal consent given by patient to complete assessment. Patient lives at home. States her children are home from college and staying with her, although they work during the day. At discharge patient plans to return and feels this is a safe discharge. CM discussed availability of home health, rehab services, and medical equipment. Patient denied known discharge needs at this time. States she has a rn urgent care that comes in for 1 hour/5 days a week and assists with bathing and shopping. States that she walks unaided, no longer drives, but family drives her where she needs to go. She has not had routine follow up with her PCP because of transportation issues. I provided her with the number to the [facility] bus and instructions. CM will continue to follow and will assist as needed with dc plans/needs. Cylinder Honer: Yulissa Cotto DCPIA - Discharge Planning Initial Assessment Updated by [email or web address]: Yulissa Cotto on 12/03/19 12:33 pm * Is the patient Alert and Oriented? Yes * How many steps to enter\exit or inside your home? Ramp/0 * PCP Dr. Soren Carrera * Pharmacy [facility] * Preadmission Environment Home with Family * ADLs Partial Dependent * Partial ADLs (Assistance needed) Bathing * Equipment Cane Nebulizer Other Oxygen Walker * Other Equipment Portable oxygen DME company is [facility] * List name and contact numbers for known caregivers / representatives who currently or will assist patient after discharge: Mami Patten DT - [phone] Gordy Patten [phone] * Verbal permission to speak to the caregivers and representatives has been obtained from the patient. Yes * Community resources currently utilized Private Duty Care * Please name any agencies selected above. Visiting Nurses * Additional services required to return to the preadmission environment? No * Can the patient safely return to the preadmission environment? Yes * Has this patient been hospitalized within the prior 30 days at any hospital? No External Providers External Provider: [facility] [place] [facility] Next Contact Date: Service Request Date: Service Type: Resolution: Reviewer: Comments: Last DP export: 12/03/19 11:43 a Patient Name: LIZZY PATTEN Page [phone] at 0834 All edits/amendments must be made on the electronic document DICTATION DATE: 12/10/19833 JUNCTION MAKER: JENNIFER 12/10/19833 RPT#: [id number] DC DATE: STATUS: ADM IN [facility] [address] [place] [address] END OF REPORT
--- NOTE | 2019-12-10 08:42 | MORECARE ---
CASE MANAGEMENT DISCHARGE SUMMARY PATIENT: LIZZY PATTEN UNIT: [id number] ADM DATE: 11/30/19 AGE: 59 : 62 SEX: F ROOM/BED: D.5082 AUTHOR: ALEC MARTINES PHYSICIAN: REFERRING PHYSICIAN: MEMO MACKENZIE MD DATE OF SERVICE: 12/10/19 Discharge Plan Patient Name: LIZZY PATTEN Facility: [facility]:[place] : 1960 Planned Disposition: Home Anticipated Discharge Date: Discharge Date: Expected LOS: Initial Reviewer: [email or web address] Initial Review Date: 12/03/2019 Generated: 12/10/19 9:42 am Comments DCP- Discharge Planning Updated by [email or web address]: Yulissa Cotto on 12/10/19 7:[address] I have sent an order to [facility] for possible BIPAP/Trilogy along with chart notes from Dr. Castle. I have ordered physical therapy to evaluate for possible rehab. She would only have benefits at [facility] if she qualifies. CM will continue to follow and assist with discharge planning/needs. DCP- Discharge Planning Updated by [email or web address]: Yulissa Drakekarishma on 12/03/19 11:[address] Patient Name: LIZZY PATTEN Admission Status: ER Accout number: [id number] Admission Date: 11-30-2019 : 1960 Admission Diagnosis:SHORTNESS OF BREATH Attending: MEMO MACKENZIE Current LOS: 3 Anticipated DC Date: Planned Disposition: Home Primary Insurance: MEDICAID [place] Discharge Planning Comments: CM met with patient to complete initial dc planning assessment. CM educated patient on the CM role and verbal consent given by patient to complete assessment. Patient lives at home. States her children are home from college and staying with her, although they work during the day. At discharge patient plans to return and feels this is a safe discharge. CM discussed availability of home health, rehab services, and medical equipment. Patient denied known discharge needs at this time. States she has a direct care staffer that comes in for 1 hour/5 days a week and assists with bathing and shopping. States that she walks unaided, no longer drives, but family drives her where she needs to go. She has not had routine follow up with her PCP because of transportation issues. I provided her with the number to the [facility] bus and instructions. CM will continue to follow and will assist as needed with dc plans/needs. Condominium Association Manager: Yulissa Cotto DCPIA - Discharge Planning Initial Assessment Updated by [email or web address]: Yulissa Cotto on 12/03/19 12:33 pm * Is the patient Alert and Oriented? Yes * How many steps to enter\exit or inside your home? Ramp/0 * PCP Dr. Soren Carrera * [facility] * Preadmission Environment Home with Family * ADLs Partial Dependent * Partial ADLs (Assistance needed) Bathing * Equipment Cane Nebulizer Other Oxygen Walker * Other Equipment Portable oxygen DME company is [facility] * List name and contact numbers for known caregivers / representatives who currently or will assist patient after discharge: Mami Patten - DTR - [phone] Gordy Patten - [phone] * Verbal permission to speak to the caregivers and representatives has been obtained from the patient. Yes * Community resources currently utilized Private Duty Care * Please name any agencies selected above. Visiting Nurses * Additional services required to return to the preadmission environment? No * Can the patient safely return to the preadmission environment? Yes * Has this patient been hospitalized within the prior 30 days at any hospital? No Last DP export: 12/10/19 7:34 a Patient Name: LIZZY PATTEN Page [phone] at 0842 All edits/amendments must be made on the electronic document DICTATION DATE: 12/10/19841 LAB AIDE: JENNIFER 12/10/19841 RPT#: [id number] DC DATE: STATUS: ADM IN [facility] [address] [place] [address] END OF REPORT
--- NOTE | 2019-12-10 09:43 | NUR ---
Rehab Note- Acute Inpatient Rehab prescreen order received. The patient has Medicaid and cannot be accepted to [facility] Acute Inpatient Rehab. Thank you for this referral! Guerita Watson RN Clinical Liaison, [facility] Rehab
[2019-12-10 11:42] VITALS: BP 119/64
[2019-12-10 14:56] VITALS: BP 120/59
--- NOTE | 2019-12-10 15:58 | NUR ---
PT HAS RECENTED IN BED TRHOUGHOUT THIS SHIFT, USES BEDPAN, NO DISTRESS NOTED. WILL CONTINUE TO MONITOR.
--- NOTE | 2019-12-10 19:30 | NUR ---
PT IN BED, AAO X 3, RESP EVEN AND UNLABORED. NO DISTRESS NOTED, CL IN REACH, SR UP X 2. PT HAS NO CONCERNS OR WANTS NOTED AT THIS TIME.
[2019-12-10 20:48] VITALS: BP 137/76
[2019-12-11 00:48] VITALS: BP 130/65
--- NOTE | 2019-12-11 03:41 | NUR ---
I have reviewed this patient and I concur with the Shift Assessment completed by the Licensed Practical Nurse today this shift.
[2019-12-11 06:00] VITALS: BP 140/74
[2019-12-11 06:46] LABS: BASOPHILS 0 % (0-2); EOSINOPHILS 0.1 % (0-7); HEMATOCRIT 33.6 % (36.0-48.0); HEMOGLOBIN 11.3 g/dL (12-16); IMMATURE GRANULOCYTES 0.6 % (0-5); LYMPHOCYTES 16.6 % (15-50); MCH 30.1 pg (26.0-34.0); MCHC 33.6 g/dL (31.0-37.0); MCV 89.4 fL (80.0-100.0); MEAN PLATELET VOLUME 9.5 fL (7.4-10.4); MONOCYTES 7.5 % (2-11); NEUTROPHILS 75.2 % (40-80); PLATELET COUNT 239 10x3/uL (130-400); RBC 3.76 10x6/uL (4.00-5.40); RDW 12.8 % (11.5-14.5)
[2019-12-11 06:52] LABS: ALBUMIN 3.2 g/dL (3.4-5.0); ALKALINE PHOSPHATASE 33 U/L (30-120); ALT (SGPT) 57 U/L (10-68); BILIRUBIN - TOTAL 0.63 mg/dL (0.2-1.3); CALC OSMOLALITY 254 mosm/kg (275-300); CHLORIDE - SERUM 92 mmol/L (98-107); CREATININE - SERUM 0.4 mg/dL (0.6-1.3); GLUCOSE 89 mg/dL (74-106); POTASSIUM - SERUM 3.3 mmol/L (3.5-5.1); PROTEIN - SERUM 5.5 g/dL (6.4-8.2); SODIUM 128 mmol/L (136-145); UREA NITROGEN 9 mg/dL (7-18); eGFR NON AFRICAN AMERICAN > 90 mL/min (90-120)
[2019-12-11 07:05] LABS: WBC 9.9 10x3/uL (4.8-10.8)
--- NOTE | 2019-12-11 07:45 | NUR ---
REPORT RECIEVED. PT SITTING SEMI FOWLERS IN BED. RR EVEN AND UNLABORED ON 3L NC. SHE HAS A R AC PIV THAT IS SL. BED LOCKED AND IN LOWEST POSITION, CALL LIGHT WITHIN REACH. WILL CTM
[2019-12-11 08:11] VITALS: BP 145/71
[2019-12-11 12:13] VITALS: BP 112/66
--- NOTE | 2019-12-11 13:13 | MORECARE ---
CASE MANAGEMENT DISCHARGE SUMMARY PATIENT: LIZZY PATTEN UNIT: [id number] ADM DATE: 11/30/19 AGE: 59 : 62 SEX: F ROOM/BED: D.2752 AUTHOR: ALEC MARTINES PHYSICIAN: REFERRING PHYSICIAN: MEMO MACKENZIE MD DATE OF SERVICE: 12/11/19 Discharge Plan Patient Name: LIZZY PATTEN Facility: [facility]:[place] : 1960 Planned Disposition: Home Anticipated Discharge Date: Discharge Date: Expected LOS: Initial Reviewer: [email or web address] Initial Review Date: 12/03/2019 Generated: 12/11/19 2:12 pm Comments DCP- Discharge Planning Updated by [email or web address]: Yulissa Kirti on 12/11/19 12:[address] I spoke with Brandon with [facility]. He is awaiting PA from patient's PCP (Dr. Carrera) and then will need Medicaid Auth for the Trilogy. CM will continue to follow and assist with discharge planning/needs. DCP- Discharge Planning Updated by [email or web address]: Yulissa Kirti on 12/10/19 7:[address] I have sent an order to [facility] for possible BIPAP/Trilogy along with chart notes from Dr. Castle. I have ordered physical therapy to evaluate for possible rehab. She would only have benefits at [facility] [place] if she qualifies. CM will continue to follow and assist with discharge planning/needs. DCP- Discharge Planning Updated by [email or web address]: Yulissa Drakekarishma on 12/03/19 11:[address] Patient Name: LIZZY PATTEN Admission Status: ER Accout number: [id number] Admission Date: 11-30-2019 : 1960 Admission Diagnosis:SHORTNESS OF BREATH Attending: MEMO MACKENZIE Current LOS: 3 Anticipated DC Date: Planned Disposition: Home Primary Insurance: MEDICAID [place] Discharge Planning Comments: CM met with patient to complete initial dc planning assessment. CM educated patient on the CM role and verbal consent given by patient to complete assessment. Patient lives at home. States her children are home from college and staying with her, although they work during the day. At discharge patient plans to return and feels this is a safe discharge. CM discussed availability of home health, rehab services, and medical equipment. Patient denied known discharge needs at this time. States she has a intensive care specialist that comes in for 1 hour/5 days a week and assists with bathing and shopping. States that she walks unaided, no longer drives, but family drives her where she needs to go. She has not had routine follow up with her PCP because of transportation issues. I provided her with the number to the [employer] bus and instructions. CM will continue to follow and will assist as needed with dc plans/needs. Anchorman: Yulissa Kirti DCPIA - Discharge Planning Initial Assessment Updated by [email or web address]: Yulissa Cotto on 12/03/19 12:33 pm * Is the patient Alert and Oriented? Yes * How many steps to enter\exit or inside your home? Ramp/0 * PCP Dr. Soren Carrera * [facility] * Preadmission Environment Home with Family * ADLs Partial Dependent * Partial ADLs (Assistance needed) Bathing * Equipment Cane Nebulizer Other Oxygen Walker * Other Equipment Portable oxygen DME company is [facility] * List name and contact numbers for known caregivers / representatives who currently or will assist patient after discharge: Mami Patten - DTR - [phone] Gordy Patten - [phone] * Verbal permission to speak to the caregivers and representatives has been obtained from the patient. Yes * Community resources currently utilized Private Duty Care * Please name any agencies selected above. Visiting Nurses * Additional services required to return to the preadmission environment? No * Can the patient safely return to the preadmission environment? Yes * Has this patient been hospitalized within the prior 30 days at any hospital? No Last DP export: 12/10/19 7:42 a Patient Name: LIZZY PATTEN Page 13125 at 1313 All edits/amendments must be made on the electronic document DICTATION DATE: 12/11/191311 BILINGUAL TEACHER AIDE: JENNIFER 12/11/19 131 RPT#: [id number] DC DATE: STATUS: ADM IN [facility] [address] [place] [address] END OF REPORT
--- NOTE | 2019-12-11 14:26 | MORECARE ---
CASE MANAGEMENT DISCHARGE SUMMARY PATIENT: LIZZY PATTEN UNIT: [id number] ADM DATE: 11/30/19 AGE: 59 : 62 SEX: F ROOM/BED: D.7167 AUTHOR: ALEC MARTINES PHYSICIAN: REFERRING PHYSICIAN: MEMO MACKENZIE MD DATE OF SERVICE: 12/11/19 Discharge Plan Patient Name: LIZZY PATTEN Facility: [facility]:[place] : 1960 Planned Disposition: Home Anticipated Discharge Date: Discharge Date: Expected LOS: Initial Reviewer: [email or web address] Initial Review Date: 12/03/2019 Generated: 12/11/19 3:25 pm Comments DCP- Discharge Planning Updated by [email or web address]: Yulissa Cotto on 12/11/19 1:[address] Brandon with [facility] states they have submitted to Medicaid for trilogy. CM spoke with patient about LTC. Patient wants to go home with home health. She has Visiting nurses for private care 1 hour a day. I called visiting nurses and spoke with Wendy. Garza states she will see if they can have a therapist that can go to [facility] and call me back. CM will continue to follow and assist with discharge planning/needs. DCP- Discharge Planning Updated by [email or web address]: Yulissa Cotto on 12/11/19 12:[address] I spoke with Brandon with [facility]. He is awaiting PA from patient's PCP (Dr. Carrera) and then will need Medicaid Auth for the Trilogy. CM will continue to follow and assist with discharge planning/needs. DCP- Discharge Planning Updated by [email or web address]: Yulissa Cotto on 12/10/19 7:[address] I have sent an order to [facility] for possible BIPAP/Trilogy along with chart notes from Dr. Castle. I have ordered physical therapy to evaluate for possible rehab. She would only have benefits at [facility] in [place] if she qualifies. CM will continue to follow and assist with discharge planning/needs. DCP- Discharge Planning Updated by [id number]: Yulissa Cotto on 12/03/19 11:[address] Patient Name: LIZZY SANDOR Admission Status: ER Accout number: [id number] Admission Date: 11-30-2019 : 1960 Admission Diagnosis:SHORTNESS OF BREATH Attending: MEMO MACKENZIE Current LOS: 3 Anticipated DC Date: Planned Disposition: Home Primary Insurance: MEDICAID [place] Discharge Planning Comments: CM met with patient to complete initial dc planning assessment. CM educated patient on the CM role and verbal consent given by patient to complete assessment. Patient lives at home. States her children are home from college and staying with her, although they work during the day. At discharge patient plans to return and feels this is a safe discharge. CM discussed availability of home health, rehab services, and medical equipment. Patient denied known discharge needs at this time. States she has a dog daycare provider that comes in for 1 hour/5 days a week and assists with bathing and shopping. States that she walks unaided, no longer drives, but family drives her where she needs to go. She has not had routine follow up with her PCP because of transportation issues. I provided her with the number to the [employer] bus and instructions. CM will continue to follow and will assist as needed with dc plans/needs. District Administrator: Yulissa Kirti DCPIA - Discharge Planning Initial Assessment Updated by [id number]: Yulissa Drakekarishma on 12/03/19 12:33 pm * Is the patient Alert and Oriented? Yes * How many steps to enter\exit or inside your home? Ramp/0 * PCP Dr. Soren Carrera * Pharmacy [facility] in [facility] * Preadmission Environment Home with Family * ADLs Partial Dependent * Partial ADLs (Assistance needed) Bathing * Equipment Cane Nebulizer Other Oxygen Walker * Other Equipment Portable oxygen DME company is [facility] * List name and contact numbers for known caregivers / representatives who currently or will assist patient after discharge: Mami Sandor [facility] - [phone] Gordy Patten - [phone] * Verbal permission to speak to the caregivers and representatives has been obtained from the patient. Yes * Community resources currently utilized Private Duty Care * Please name any agencies selected above. Visiting Nurses * Additional services required to return to the preadmission environment? No * Can the patient safely return to the preadmission environment? Yes * Has this patient been hospitalized within the prior 30 days at any hospital? No Last DP export: 12/11/19 12:13 p Patient Name: LIZZY PATTEN Page [id number] at 1426 All edits/amendments must be made on the electronic document DICTATION DATE: 12/11/191424 PUBLIC HEALTH DOCTOR: JENNIFER 12/11/191424 RPT#: [id number] DC DATE: STATUS: ADM IN [facility] [address] [place] [address] END OF REPORT
--- NOTE | 2019-12-11 15:01 | NUR ---
I have reviewed this patient and I concur with the Shift Assessment completed by the Licensed Practical Nurse today this shift.
[2019-12-11 16:05] VITALS: BP 148/65
--- NOTE | 2019-12-11 16:17 | MORECARE ---
CASE MANAGEMENT DISCHARGE SUMMARY PATIENT: LIZZY PATTEN UNIT: [id number] ADM DATE: 11/30/19 AGE: 59 : 62 SEX: F ROOM/BED: D.9687 AUTHOR: ALEC MARTINES PHYSICIAN: REFERRING PHYSICIAN: MEMO MACKENZIE MD DATE OF SERVICE: 12/11/19 Discharge Plan Patient Name: LIZZY PATTEN Facility: [facility]:[place] : 1960 Planned Disposition: Home Anticipated Discharge Date: Discharge Date: Expected LOS: Initial Reviewer: [email or web address] Initial Review Date: 12/03/2019 Generated: 12/11/19 5:17 pm Comments DCP- Discharge Planning Updated by [email or web address]: Yulissa Cotto on 12/11/19 1:[address] Brandon with [facility] states they have submitted to Medicaid for trilogy. CM spoke with patient about LTC. Patient wants to go home with home health. She has Visiting nurses for private care 1 hour a day. I called visiting nurses and spoke with Wendy. Garza states she will see if they can have a therapist that can go to [facility] and call me back. CM will continue to follow and assist with discharge planning/needs. DCP- Discharge Planning Updated by [email or web address]: Yulissa Cotto on 12/11/19 12:[address] I spoke with Brandon with [facility]. He is awaiting PA from patient's PCP (Dr. Carrera) and then will need Medicaid Auth for the Trilogy. CM will continue to follow and assist with discharge planning/needs. DCP- Discharge Planning Updated by [email or web address]: Yulissa Cotto on 12/10/19 7:[address] I have sent an order to [facility] for possible BIPAP/Trilogy along with chart notes from Dr. Castle. I have ordered physical therapy to evaluate for possible rehab. She would only have benefits at [facility] in [place] if she qualifies. CM will continue to follow and assist with discharge planning/needs. DCP- Discharge Planning Updated by [email or web address]: Yulissa Cotto on 12/03/19 11:[address] Patient Name: LIZZY SANDOR Admission Status: ER Accout number: [id number] Admission Date: 11-30-2019 : 1960 Admission Diagnosis:SHORTNESS OF BREATH Attending: MEMO MACKENZIE Current LOS: 3 Anticipated DC Date: Planned Disposition: Home Primary Insurance: MEDICAID [place] Discharge Planning Comments: CM met with patient to complete initial dc planning assessment. CM educated patient on the CM role and verbal consent given by patient to complete assessment. Patient lives at home. States her children are home from college and staying with her, although they work during the day. At discharge patient plans to return and feels this is a safe discharge. CM discussed availability of home health, rehab services, and medical equipment. Patient denied known discharge needs at this time. States she has a primary care coordinator that comes in for 1 hour/5 days a week and assists with bathing and shopping. States that she walks unaided, no longer drives, but family drives her where she needs to go. She has not had routine follow up with her PCP because of transportation issues. I provided her with the number to the [employer] bus and instructions. CM will continue to follow and will assist as needed with dc plans/needs. Diamond Setter: Yulissaeliza Cotto DCPIA - Discharge Planning Initial Assessment Updated by [email or web address]: Yulissa Kirti on 12/03/19 12:33 pm * Is the patient Alert and Oriented? Yes * How many steps to enter\exit or inside your home? Ramp/0 * PCP Dr. Soren Carrera * Pharmacy [facility] in [facility] * Preadmission Environment Home with Family * ADLs Partial Dependent * Partial ADLs (Assistance needed) Bathing * Equipment Cane Nebulizer Other Oxygen Walker * Other Equipment Portable oxygen DME company is [facility] * List name and contact numbers for known caregivers / representatives who currently or will assist patient after discharge: [facility] - [phone] Gordy Patten - [phone] * Verbal permission to speak to the caregivers and representatives has been obtained from the patient. Yes * Community resources currently utilized Private Duty Care * Please name any agencies selected above. Visiting Nurses * Additional services required to return to the preadmission environment? No * Can the patient safely return to the preadmission environment? Yes * Has this patient been hospitalized within the prior 30 days at any hospital? No External Providers External Provider: [facility] Next Contact Date: Service Request Date: Service Type: Resolution: Reviewer: Comments: Last DP export: 12/11/19 1:26 p Patient Name: LIZZY PATTEN Page [id number] at 1617 All edits/amendments must be made on the electronic document DICTATION DATE: 12/11/191616 GEOLOGY ASSOCIATE: JENNIFER 12/11/191616 RPT#: [id number] DC DATE: STATUS: ADM IN [facility] [address] [place] [address] END OF REPORT
--- NOTE | 2019-12-11 16:33 | MORECARE ---
CASE MANAGEMENT DISCHARGE SUMMARY PATIENT: LIZZY PATTEN UNIT: [id number] ADM DATE: 11/30/19 AGE: 59 : 62 SEX: F ROOM/BED: D.0344 AUTHOR: ALEC MARTINES PHYSICIAN: REFERRING PHYSICIAN: MEMO MACKENZIE MD DATE OF SERVICE: 12/11/19 Discharge Plan Patient Name: LIZZY PATTEN Facility: [facility]:[place] : 1960 Planned Disposition: Home Anticipated Discharge Date: Discharge Date: Expected LOS: Initial Reviewer: [email or web address] Initial Review Date: 12/03/2019 Generated: 12/11/19 5:32 pm Comments DCP- Discharge Planning Updated by [email or web address]: Yulissa Cotto on 12/11/19 3:[address] CM called Visiting nurses in [place] and they do not do physical therapy to [facility]. I called [facility] and referral sent. I called [facility] and spoke with Ignacio and clinical faxed. [facility] has delivered her trilogy. I informed the patient she is to wear her own trilogy tonight and she can be discharged tomorrow. I informed Natalye with RT. Dr. Berry agrees with discharge plan for tomorrow. I instructed patient she should have 24/7 supervision at home until she is stronger and she states she will speak with her children about this. CM will continue to follow and assist with discharge planning/needs. DCP- Discharge Planning Updated by [email or web address]: Yulissa Cotto on 12/11/19 1:[address] Brandon with [facility] states they have submitted to Medicaid for trilogy. CM spoke with patient about LTC. Patient wants to go home with home health. She has Visiting nurses for private care 1 hour a day. I called visiting nurses and spoke with Kayla. Kayla states she will see if they can have a therapist that can go to [facility] and call me back. CM will continue to follow and assist with discharge planning/needs. DCP- Discharge Planning Updated by [id number]: Yulissa Cotto on 12/11/19 12:[address] I spoke with Brandon with [facility]. He is awaiting PA from patient's PCP (Dr. Carrera) and then will need Medicaid Auth for the Trilogy. CM will continue to follow and assist with discharge planning/needs. DCP- Discharge Planning Updated by [email or web address]: Yulissa Cotto on 12/10/19 7:[address] I have sent an order to [facility] for possible BIPAP/Trilogy along with chart notes from Dr. Castle. I have ordered physical therapy to evaluate for possible rehab. She would only have benefits at [facility] if she qualifies. CM will continue to follow and assist with discharge planning/needs. DCP- Discharge Planning Updated by [id number]: Yulissa Cotto on 12/03/19 11:[address] Patient Name: LIZZY PATTEN Admission Status: ER Accout number: [id number] Admission Date: 11-30-2019 : 1960 Admission Diagnosis:SHORTNESS OF BREATH Attending: MEMO MACKENZIE Current LOS: 3 Anticipated DC Date: Planned Disposition: Home Primary Insurance: MEDICAID [place] Discharge Planning Comments: CM met with patient to complete initial dc planning assessment. CM educated patient on the CM role and verbal consent given by patient to complete assessment. Patient lives at home. States her children are home from college and staying with her, although they work during the day. At discharge patient plans to return and feels this is a safe discharge. CM discussed availability of home health, rehab services, and medical equipment. Patient denied known discharge needs at this time. States she has a acute care surgeon that comes in for 1 hour/5 days a week and assists with bathing and shopping. States that she walks unaided, no longer drives, but family drives her where she needs to go. She has not had routine follow up with her PCP because of transportation issues. I provided her with the number to the [employer] bus and instructions. CM will continue to follow and will assist as needed with dc plans/needs. Ballistics Laboratory Gunsmith: Yulissa Cotto DCPIA - Discharge Planning Initial Assessment Updated by [id number]: Yulissa Drakekarishma on 12/03/19 12:33 pm * Is the patient Alert and Oriented? Yes * How many steps to enter\exit or inside your home? Ramp/0 * PCP Dr. Soren Carrera * Pharmacy [facility] in [facility] * Preadmission Environment Home with Family * ADLs Partial Dependent * Partial ADLs (Assistance needed) Bathing * Equipment Cane Nebulizer Other Oxygen Walker * Other Equipment Portable oxygen DME company is [facility] * List name and contact numbers for known caregivers / representatives who currently or will assist patient after discharge: Mami Patten - [facility] - [phone] Gordy Patten - [phone] * Verbal permission to speak to the caregivers and representatives has been obtained from the patient. Yes * Community resources currently utilized Private Duty Care * Please name any agencies selected above. Visiting Nurses * Additional services required to return to the preadmission environment? No * Can the patient safely return to the preadmission environment? Yes * Has this patient been hospitalized within the prior 30 days at any hospital? No Last DP export: 12/11/19 3:17 p Patient Name: LIZZY PATTEN Page [id number] at 1633 All edits/amendments must be made on the electronic document DICTATION DATE: 12/11/191631 MAINTENANCE TECHNICIAN 2ND SHIFT: JENNIFER 12/11/19 163 RPT#: [id number] DC DATE: STATUS: ADM IN [facility] [address] [place] [address] END OF REPORT
--- NOTE | 2019-12-11 19:30 | NUR ---
PT IN BED, AAO X 3, RESP EVEN AND UNLABORED, NO DISTRESS NOTED, CL IN REACH, SR UP X 2. PT HAS NO CONCERNS OR WANTS NOTED AT THIS TIME.
[2019-12-11 20:00] VITALS: BP 130/64
[2019-12-12 04:00] VITALS: BP 161/79
[2019-12-12 05:08] LABS: BASOPHILS 0 % (0-2); EOSINOPHILS 0.2 % (0-7); HEMATOCRIT 33.8 % (36.0-48.0); HEMOGLOBIN 11.1 g/dL (12-16); IMMATURE GRANULOCYTES 0.7 % (0-5); LYMPHOCYTES 15.6 % (15-50); MCH 29.9 pg (26.0-34.0); MCHC 32.8 g/dL (31.0-37.0); MCV 91.1 fL (80.0-100.0); MEAN PLATELET VOLUME 9.2 fL (7.4-10.4); MONOCYTES 8.5 % (2-11); PLATELET COUNT 219 10x3/uL (130-400); RBC 3.71 10x6/uL (4.00-5.40); WBC 10.7 10x3/uL (4.8-10.8)
[2019-12-12 05:34] LABS: ALKALINE PHOSPHATASE 34 U/L (30-120); ALT (SGPT) 54 U/L (10-68); BILIRUBIN - TOTAL 0.69 mg/dL (0.2-1.3); CALC OSMOLALITY 249 mosm/kg (275-300); CALCIUM 8.1 mg/dL (8.5-10.1); CARBON DIOXIDE 35.4 mmol/L (21.0-32.0); CHLORIDE - SERUM 90 mmol/L (98-107); CREATININE - SERUM 0.4 mg/dL (0.6-1.3); GLUCOSE 95 mg/dL (74-106); PROTEIN - SERUM 5.5 g/dL (6.4-8.2); SODIUM 125 mmol/L (136-145); UREA NITROGEN 7 mg/dL (7-18); eGFR NON AFRICAN AMERICAN > 90 mL/min (90-120)
[2019-12-12 05:36] LABS: POTASSIUM - SERUM 4.1 mmol/L (3.5-5.1)
--- NOTE | 2019-12-12 09:45 | MORECARE ---
CASE MANAGEMENT DISCHARGE SUMMARY PATIENT: LIZZY PATTEN UNIT: [id number] ADM DATE: 11/30/19 AGE: 59 : 62 SEX: F ROOM/BED: D.3352 AUTHOR: ALEC MARTINES PHYSICIAN: REFERRING PHYSICIAN: MEMO MACKENZIE MD DATE OF SERVICE: 12/12/19 Discharge Plan Patient Name: LIZZY PATTEN Facility: [facility]:[place] : 1960 Planned Disposition: Home Anticipated Discharge Date: Discharge Date: Expected LOS: Initial Reviewer: [email or web address] Initial Review Date: 12/03/2019 Generated: 12/12/19 10:45 am Comments DCP- Discharge Planning Updated by [id number]: Yulissa Cotto on 12/12/19 8:[address] Patient told her nurse that her son felt she needed to go to a usp for rehab. I called Justina with [facility] re[facility] and they are unable to accept her with a new trilogy from [facility]. I informed the patient that she did not have any insurance benefits for rehab at a skilled facility. I informed her that she could try and see if she qualifies for long-term care at a usp, but she would have to give up her monthly income for the long-term care. She states that she will speak with her son, but states that she was taking care of herself prior to coming to the hospital. I do not feel like she is appropriate for long-term care at this time. She tells me she does not want long-term care. DCP- Discharge Planning Updated by [email or web address]: Yulissa Cotto on 12/11/19 3:[address] CM called Visiting nurses in [place] and they do not do physical therapy to [place]. I called [facility] and referral sent. I called [facility] and spoke with Ignacio and clinical faxed. [facility] has delivered her trilogy. I informed the patient she is to wear her own trilogy tonight and she can be discharged tomorrow. I informed Natalye with RT. Dr. Berry agrees with discharge plan for tomorrow. I instructed patient she should have 24/7 supervision at home until she is stronger and she states she will speak with her children about this. CM will continue to follow and assist with discharge planning/needs. DCP- Discharge Planning Updated by [id number]: Yulissa Cotto on 12/11/19 1:[address] Brandon with [facility] states they have submitted to Medicaid for trilogy. CM spoke with patient about LTC. Patient wants to go home with home health. She has Visiting nurses for private care 1 hour a day. I called visiting nurses and spoke with Wendy. Garza states she will see if they can have a therapist that can go to [facility] and call me back. CM will continue to follow and assist with discharge planning/needs. DCP- Discharge Planning Updated by [id number]: Yulissa Cotto on 12/11/19 12:[address] I spoke with Brandon with [facility]. He is awaiting PA from patient's PCP (Dr. Carrera) and then will need Medicaid Auth for the Trilogy. CM will continue to follow and assist with discharge planning/needs. DCP- Discharge Planning Updated by [id number]: Yulissa Cotto on 12/10/19 7:[address] I have sent an order to [facility] for possible BIPAP/Trilogy along with chart notes from Dr. Castle. I have ordered physical therapy to evaluate for possible rehab. She would only have benefits at [facility] in [place] if she qualifies. CM will continue to follow and assist with discharge planning/needs. DCP- Discharge Planning Updated by [email or web address]: Yulissa Cotto on 12/03/19 11:[address] Patient Name: LIZZY PATTEN Admission Status: ER Accout number: [id number] Admission Date: 11-30-2019 : 1960 Admission Diagnosis:SHORTNESS OF BREATH Attending: MEMO MACKENZIE Current LOS: 3 Anticipated DC Date: Planned Disposition: Home Primary Insurance: MEDICAID [place] Discharge Planning Comments: CM met with patient to complete initial dc planning assessment. CM educated patient on the CM role and verbal consent given by patient to complete assessment. Patient lives at home. States her children are home from college and staying with her, although they work during the day. At discharge patient plans to return and feels this is a safe discharge. CM discussed availability of home health, rehab services, and medical equipment. Patient denied known discharge needs at this time. States she has a hourly caregiver that comes in for 1 hour/5 days a week and assists with bathing and shopping. States that she walks unaided, no longer drives, but family drives her where she needs to go. She has not had routine follow up with her PCP because of transportation issues. I provided her with the number to the [employer] bus and instructions. CM will continue to follow and will assist as needed with dc plans/needs. Supplier Quality Engineer: Yulissa Cotto DCPIA - Discharge Planning Initial Assessment Updated by [id number]: Yulissa Cotto on 12/03/19 12:33 pm * Is the patient Alert and Oriented? Yes * How many steps to enter\exit or inside your home? Ramp/0 * PCP Dr. Soren Carrera * Pharmacy [facility] in [facility] * Preadmission Environment Home with Family * ADLs Partial Dependent * Partial ADLs (Assistance needed) Bathing * Equipment Cane Nebulizer Other Oxygen Walker * Other Equipment Portable oxygen DME company is [facility] * List name and contact numbers for known caregivers / representatives who currently or will assist patient after discharge: Mami Patten - DTR - [phone] Gordy Patten - [phone] * Verbal permission to speak to the caregivers and representatives has been obtained from the patient. Yes * Community resources currently utilized Private Duty Care * Please name any agencies selected above. Visiting Nurses * Additional services required to return to the preadmission environment? No * Can the patient safely return to the preadmission environment? Yes * Has this patient been hospitalized within the prior 30 days at any hospital? No Last DP export: 12/11/19 3:33 p Patient Name: LIZZY PATTEN Page [id number] at 0945 All edits/amendments must be made on the electronic document DICTATION DATE: 12/12/19944 CONTROL VALVE TECHNICIAN: JENNIFER 12/12/19944 RPT#: [id number] DC DATE: STATUS: ADM IN [facility] [address] [place] [address] END OF REPORT
[2019-12-12 10:36] VITALS: BP 140/71
[2019-12-12] MEDS ORDERED: BROVANA15 MCG/2 M INH (11:54)
--- NOTE | 2019-12-12 11:54 | MORECARE ---
CASE MANAGEMENT DISCHARGE SUMMARY PATIENT: LIZZY PATTEN UNIT: [id number] ADM DATE: 11/30/19 AGE: 59 : 62 SEX: F ROOM/BED: D.3062 AUTHOR: ALEC MARTINES PHYSICIAN: REFERRING PHYSICIAN: MEMO MACKENZIE MD DATE OF SERVICE: 12/12/19 Discharge Plan Patient Name: LIZZY PATTEN Facility: [facility]:[place] : 1960 Planned Disposition: Home Anticipated Discharge Date: Discharge Date: Expected LOS: Initial Reviewer: [email or web address] Initial Review Date: 12/03/2019 Generated: 12/12/19 12:53 pm Comments DCP- Discharge Planning Updated by [email or web address]: Yulissa Cotto on 12/12/19 10:[address] I spoke with patient. She is wanting to go home if she cannot get rehab at a skilled facility. I have received confirmation from Ignacio with [facility] that they will start home health services on Sunday. I instructed her she is to have 08/01 help at home. She states "I told my son." She states that she has a wheelchair at home that her son can wheel her in and she will have him help her with transfers. She will go home with home health. CM will continue to follow and assist with discharge planning/needs. DCP- Discharge Planning Updated by [id number]: Yulissa Cotto on 12/12/19 8:[address] Patient told her nurse that her son felt she needed to go to a senior care for rehab. I called Justina with [facility] rehab and they are unable to accept her with a new trilogy from [facility]. I informed the patient that she did not have any insurance benefits for rehab at a skilled facility. I informed her that she could try and see if she qualifies for assisted care at a senior care, but she would have to give up her monthly income for the assisted care. She states that she will speak with her son, but states that she was taking care of herself prior to coming to the hospital. I do not feel like she is appropriate for buttermaker continuous churn care at this time. She tells me she does not want assisted care. DCP- Discharge Planning Updated by [email or web address]: Yulissa Kirti on 12/11/19 3:[address] CM called [facility] [place] and they do not do physical therapy to [facility]. I called [facility] and referral sent. I called [facility] and spoke with Ignacio and nadine faxed. [facility] has delivered her trilogy. I informed the patient she is to wear her own trilogy tonight and she can be discharged tomorrow. I informed Libradoye with RT. Dr. Berry agrees with discharge plan for tomorrow. I instructed patient she should have / supervision at home until she is stronger and she states she will speak with her children about this. CM will continue to follow and assist with discharge planning/needs. DCP- Discharge Planning Updated by [id number]: Yulissa Kirti on 12/11/19 1:[address] Brandon with [facility] states they have submitted to Medicaid for trilogy. CM spoke with patient about LTC. Patient wants to go home with home health. She has [facility] for private care 1 hour a day. I called [facility] and spoke with Wendy. Garza states she will see if they can have a therapist that can go to [facility] and call me back. CM will continue to follow and assist with discharge planning/needs. DCP- Discharge Planning Updated by [email or web address]: Yulissa Kirti on 12/11/19 12:[address] I spoke with Brandon with [facility]. He is awaiting PA from patient's PCP (Dr. Carrera) and then will need Medicaid Auth for the Trilogy. CM will continue to follow and assist with discharge planning/needs. DCP- Discharge Planning Updated by [email or web address]: Yulissa Cotto on 12/10/19 7:[address] I have sent an order to [facility] for possible BIPAP/Trilogy along with chart notes from Dr. Castle. I have ordered physical therapy to evaluate for possible rehab. She would only have benefits at [facility] in [place] if she qualifies. CM will continue to follow and assist with discharge planning/needs. DCP- Discharge Planning Updated by [id number]: Yulissa Kirti on 12/03/19 11:[address] Patient Name: LIZZY PATTEN Admission Status: ER Accout number: [id number] Admission Date: 11-30-2019 : 1960 Admission Diagnosis:SHORTNESS OF BREATH Attending: MEMO MACKENZIE Current LOS: 3 Anticipated DC Date: Planned Disposition: Home Primary Insurance: MEDICAID [place] Discharge Planning Comments: CM met with patient to complete initial dc planning assessment. CM educated patient on the CM role and verbal consent given by patient to complete assessment. Patient lives at home. States her children are home from college and staying with her, although they work during the day. At discharge patient plans to return and feels this is a safe discharge. CM discussed availability of home health, rehab services, and medical equipment. Patient denied known discharge needs at this time. States she has a care clinician that comes in for 1 hour/5 days a week and assists with bathing and shopping. States that she walks unaided, no longer drives, but family drives her where she needs to go. She has not had routine follow up with her PCP because of transportation issues. I provided her with the number to the [email or web address] bus and instructions. CM will continue to follow and will assist as needed with dc plans/needs. Rehabilitation Counsellor: Yulissa Cotto DCPIA - Discharge Planning Initial Assessment Updated by [id number]: Yulissa Cotto on 12/03/19 12:33 pm * Is the patient Alert and Oriented? Yes * How many steps to enter\\exit or inside your home? Ramp/0 * PCP Dr. Soren Carrera * Pharmacy [facility] in [facility] * Preadmission Environment Home with Family * ADLs Partial Dependent * Partial ADLs (Assistance needed) Bathing * Equipment Cane Nebulizer Other Oxygen Walker * Other Equipment Portable oxygen DME company is [facility] * List name and contact numbers for known caregivers / representatives who currently or will assist patient after discharge: Mami Patten - DTR - [phone] Gordy Rodrigezver - [phone] * Verbal permission to speak to the caregivers and representatives has been obtained from the patient. Yes * Community resources currently utilized [facility] * Please name any agencies selected above. [facility] * Additional services required to return to the preadmission environment? No * Can the patient safely return to the preadmission environment? Yes * Has this patient been hospitalized within the prior 30 days at any hospital? No Last DP export: 12/12/19 8:45 a Patient Name: LIZZY PATTEN Page [id number] at 1154 All edits/amendments must be made on the electronic document DICTATION DATE: 12/12/19 115 ETL APPLICATION DEVELOPER: JENNIFER 12/12/19 1153 RPT#: [id number] DC DATE: STATUS: ADM IN [facility] [address] [place] [address] END OF REPORT
[2019-12-12] MEDS ORDERED: IPRAT-ALBUT 0.5-3 ML UPD (12:02)
[2019-12-12] MEDS ORDERED: TESSALON PERLE100 MG PO (12:03)
[2019-12-12] MEDS ORDERED: THERMOTABS 1 GM1 GM PO (12:03)
[2019-12-12] MEDS ORDERED: K-DUR20 MEQ PO (12:03)
[2019-12-12] MEDS ORDERED: MUCINEX DM ER1 EAC1 PO (12:04)
[2019-12-12] MEDS ORDERED: PULMICORT0.5 MG/21 UPD (12:04)
[2019-12-12] MEDS ORDERED: DALIRESP250 MCG PO (12:04)
[2019-12-12] MEDS ORDERED: PREDNISONE10 MG PO (12:06)
[2019-12-12] MEDS ORDERED: BUSPAR10 MG PO (15:05)
--- NOTE | 2019-12-12 15:34 | NUR ---
PT'S DISCHARGE INSTRUCTIONS SIGNED AND IV REMOVED. TELEMETRY REMOVED. TRILOGY SENT.
--- NOTE | 2019-12-13 10:18 | MORECARE ---
CASE MANAGEMENT DISCHARGE SUMMARY PATIENT: LIZZY PATTEN UNIT: [id number] ADM DATE: 11/30/19 AGE: 59 : 62 SEX: F ROOM/BED: D.0362 AUTHOR: ALEC MARTINES PHYSICIAN: REFERRING PHYSICIAN: MEMO MACKENZIE MD DATE OF SERVICE: 12/13/19 Discharge Plan Patient Name: LIZZY PATTEN Facility: [facility]:[place] : 1960 Planned Disposition: Home Anticipated Discharge Date: Discharge Date: 12/12/2019 Expected LOS: Initial Reviewer: [email or web address] Initial Review Date: 12/03/2019 Generated: 12/13/19 11:18 am Comments DCP- Discharge Planning Updated by [email or web address]: Yulissa Cotto on 12/12/19 10:[address] I spoke with patient. She is wanting to go home if she cannot get rehab at a skilled facility. I have received confirmation from [facility] that they will start home health services on Sunday. I instructed her she is to have /7 help at home. She states "I told my son." She states that she has a wheelchair at home that her son can wheel her in and she will have him help her with transfers. She will go home with home health. CM will continue to follow and assist with discharge planning/needs. DCP- Discharge Planning Updated by [email or web address]: Yulissa Cotto on 12/12/19 8:[address] Patient told her nurse that her son felt she needed to go to a detention for rehab. I called Justina with [facility] rehab and they are unable to accept her with a new trilogy from [facility]. I informed the patient that she did not have any insurance benefits for rehab at a skilled facility. I informed her that she could try and see if she qualifies for half-way care at a detention, but she would have to give up her monthly income for the half-way care. She states that she will speak with her son, but states that she was taking care of herself prior to coming to the hospital. I do not feel like she is appropriate for half-way care at this time. She tells me she does not want half-way care. DCP- Discharge Planning Updated by [email or web address]: Yulissa Cotto on 12/11/19 3:[address] CM called [facility] in [place] and they do not do physical therapy to [facility]. I called [facility] and referral sent. I called [facility] and spoke with Ignacio and clinical faxed. [facility] has delivered her trilogy. I informed the patient she is to wear her own trilogy tonight and she can be discharged tomorrow. I informed Libradoye with RT. Dr. Berry agrees with discharge plan for tomorrow. I instructed patient she should have 24/7 supervision at home until she is stronger and she states she will speak with her children about this. CM will continue to follow and assist with discharge planning/needs. DCP- Discharge Planning Updated by [email or web address]: Yulissa Cotto on 12/11/19 1:[address] Brandon with [facility] states they have submitted to Medicaid for trilogy. CM spoke with patient about LTC. Patient wants to go home with home health. She has [facility] for private care 1 hour a day. I called [facility] and spoke with Kayla. Kayla states she will see if they can have a therapist that can go to [facility] and call me back. CM will continue to follow and assist with discharge planning/needs. DCP- Discharge Planning Updated by [email or web address]: Yulissa Cotto on 12/11/19 12:[address] I spoke with Brandon with [facility]. He is awaiting PA from patient's PCP (Dr. Carrera) and then will need Medicaid Auth for the Trilogy. CM will continue to follow and assist with discharge planning/needs. DCP- Discharge Planning Updated by [email or web address]: Yulissa Cotto on 12/10/19 7:[address] I have sent an order to [facility] for possible BIPAP/Trilogy along with chart notes from Dr. Castle. I have ordered physical therapy to evaluate for possible rehab. She would only have benefits at [facility] in [place] if she qualifies. CM will continue to follow and assist with discharge planning/needs. DCP- Discharge Planning Updated by [id number]: Yulissa Cotto on 12/03/19 11:[address] Patient Name: LIZZY PATTEN Admission Status: ER Accout number: [id number] Admission Date: 11-30-2019 : 1960 Admission Diagnosis:SHORTNESS OF BREATH Attending: MEMO MACKENZIE Current LOS: 3 Anticipated DC Date: Planned Disposition: Home Primary Insurance: MEDICAID [place] Discharge Planning Comments: CM met with patient to complete initial dc planning assessment. CM educated patient on the CM role and verbal consent given by patient to complete assessment. Patient lives at home. States her children are home from college and staying with her, although they work during the day. At discharge patient plans to return and feels this is a safe discharge. CM discussed availability of home health, rehab services, and medical equipment. Patient denied known discharge needs at this time. States she has a caregiver services home that comes in for 1 hour/5 days a week and assists with bathing and shopping. States that she walks unaided, no longer drives, but family drives her where she needs to go. She has not had routine follow up with her PCP because of transportation issues. I provided her with the number to the [employer] bus and instructions. CM will continue to follow and will assist as needed with dc plans/needs. [id number]/M60 Tank Driver: Yulissaeliza Cotto DCPIA - Discharge Planning Initial Assessment Updated by [email or web address]: Yulissa Kirti on 12/03/19 12:33 pm * Is the patient Alert and Oriented? Yes * How many steps to enter\\exit or inside your home? Ramp/0 * PCP Dr. Soren Carrera * Pharmacy [facility] in [facility] * Preadmission Environment Home with Family * ADLs Partial Dependent * Partial ADLs (Assistance needed) Bathing * Equipment Cane Nebulizer Other Oxygen Walker * Other Equipment Portable oxygen DME company is [facility] * List name and contact numbers for known caregivers / representatives who currently or will assist patient after discharge: Mami Mat [facility] - [phone] Gordy Patten - [phone] * Verbal permission to speak to the caregivers and representatives has been obtained from the patient. Yes * Community resources currently utilized [facility] * Please name any agencies selected above. [facility] * Additional services required to return to the preadmission environment? No * Can the patient safely return to the preadmission environment? Yes * Has this patient been hospitalized within the prior 30 days at any hospital? No Last DP export: 12/12/19 10:54 a Patient Name: LIZZY PATTEN Page [id number] at 1018 All edits/amendments must be made on the electronic document DICTATION DATE: 12/13/19 1018 COOKER SYRUP: JENNIFER 12/13/19 1018 RPT#: [id number] DC DATE:12/12/19 STATUS: DIS IN [facility] [address] [place] [address] END OF REPORT
[2019-12-13] MEDS ORDERED: ATIVAN0.5 MG PO (19:24)
== END 2019-12-12 15:35 | disposition home health service (06) | DRG 189 ==
LOC: D.ER 23:07 → D.M2 11-30 02:01
PROVIDERS: Emergency Medicine; Family Medicine; Internal Medicine; ADMIT Emergency Medicine; ATTEND Emergency Medicine
PROC: 5A09457 Assistance with Respiratory Ventilation, 24-96 Consecutive Hours, Continuous Positive Airway Pressure (ICD-10-PCS; principal; 2019-12-07)
DX: J96.21 Acute and chronic respiratory failure with hypoxia (principal); G93.41 Metabolic encephalopathy; J44.1 Chronic obstructive pulmonary disease with (acute) exacerbation; E46 Unspecified protein-calorie malnutrition; E87.1 Hypo-osmolality and hyponatremia; Z68.23 Body mass index [BMI] 23.0-23.9, adult; J20.9 Acute bronchitis, unspecified; R53.81 Other malaise; E87.6 Hypokalemia; M19.90 Unspecified osteoarthritis, unspecified site; Z91.19 Patient's noncompliance with other medical treatment and regimen; Z87.891 Personal history of nicotine dependence

== ENCOUNTER 2019-12-13 17:27 | Emergency (ER) | payer MEDICAID ==
[~2019-12-13] VITALS: Ht 157.5 cm; Wt 56.4 kg
[~2019-12-13 17:27] MED LIST changes: +BROVANA15 MCG/2 M INH; +BUSPAR10 MG PO; +DALIRESP250 MCG PO; +IPRAT-ALBUT 0.5-3 ML UPD; +K-DUR20 MEQ PO; +MUCINEX DM ER1 EAC1 PO; +PULMICORT0.5 MG/21 UPD; +THERMOTABS 1 GM1 GM PO
[2019-12-13 17:29] VITALS: Ht 157.5 cm; Wt 56.4 kg
[2019-12-13 17:59] LABS: BASOPHILS 0 % (0-2); EOSINOPHILS 0 % (0-7); HEMATOCRIT 37.7 % (36.0-48.0); HEMOGLOBIN 12.7 g/dL (12-16); IMMATURE GRANULOCYTES 0.5 % (0-5); LYMPHOCYTES 2.5 % (15-50); MCH 30.2 pg (26.0-34.0); MCHC 33.7 g/dL (31.0-37.0); MCV 89.8 fL (80.0-100.0); MEAN PLATELET VOLUME 9.5 fL (7.4-10.4); MONOCYTES 3.1 % (2-11); NEUTROPHILS 93.9 % (40-80); RDW 12.9 % (11.5-14.5)
[2019-12-13 18:01] LABS: PLATELET COUNT 283 10x3/uL (130-400)
[2019-12-13 18:08] LABS: CALCIUM 8.5 mg/dL (8.5-10.1); CARBON DIOXIDE 33.5 mmol/L (21.0-32.0); CHLORIDE - SERUM 88 mmol/L (98-107); SODIUM 123 mmol/L (136-145)
[2019-12-13 18:11] LABS: APTT 22.8 SECONDS (22.8-39.4); INR 0.92 (0.85-1.17); PROTIME 12.3 SECONDS (11.6-15.0)
[2019-12-13 18:13] LABS: CALC OSMOLALITY 251 mosm/kg (275-300); CREATININE - SERUM 0.7 mg/dL (0.6-1.3); GLUCOSE 147 mg/dL (74-106); UREA NITROGEN 15 mg/dL (7-18); eGFR NON AFRICAN AMERICAN > 90 mL/min (90-120)
[2019-12-13 18:27] LABS: ALBUMIN 3.5 g/dL (3.4-5.0); ALKALINE PHOSPHATASE 41 U/L (30-120); ALT (SGPT) 58 U/L (10-68); BILIRUBIN - TOTAL 0.84 mg/dL (0.2-1.3); CKMB 2.9 U/L (0.0-3.6); CREATINE KINASE 89 UL (21-215); PRO BNP 188 pg/mL (0-125); PROTEIN - SERUM 6.6 g/dL (6.4-8.2)
[2019-12-13 18:28] LABS: TROPONIN-I < 0.017 ng/mL (0.000-0.060)
[2019-12-13] MEDS ORDERED: ATIVAN0.5 MG PO (19:24)
[2019-12-13 22:04] VITALS: BP 122/77
== END 2019-12-13 22:05 | disposition home or self-care (01) ==
LOC: D.ER 17:27
PROVIDERS: Family Medicine
DX: J44.9 Chronic obstructive pulmonary disease, unspecified (principal); F41.9 Anxiety disorder, unspecified; R05 Cough; R53.1 Weakness; R06.02 Shortness of breath

== ENCOUNTER → 2020-02-19 13:41 | Outpatient (CLI) | payer MEDICAID ==
[2019-12-13 17:29] VITALS: BMI 22.7
[~2020-02-19 13:41] MED LIST changes: +ATIVAN0.5 MG PO
[2020-02-19 14:19] LABS: CALC OSMOLALITY 280 mosm/kg (275-300); CALCIUM 8.8 mg/dL (8.5-10.1); CHLORIDE - SERUM 102 mmol/L (98-107); CREATININE - SERUM 0.5 mg/dL (0.6-1.3); POTASSIUM - SERUM 4.3 mmol/L (3.5-5.1); SODIUM 141 mmol/L (136-145); UREA NITROGEN 14 mg/dL (7-18); eGFR NON AFRICAN AMERICAN > 90 mL/min (90-120)
[2020-02-19 14:20] LABS: BASOPHILS 0.6 % (0-2); EOSINOPHILS 2.6 % (0-7); GLUCOSE 76 mg/dL (74-106); HEMOGLOBIN 11.6 g/dL (12-16); IMMATURE GRANULOCYTES 0.3 % (0-5); LYMPHOCYTES 39.4 % (15-50); MCH 30.6 pg (26.0-34.0); MCHC 32.2 g/dL (31.0-37.0); MEAN PLATELET VOLUME 10.4 fL (7.4-10.4); MONOCYTES 8.7 % (2-11); NEUTROPHILS 48.4 % (40-80); RBC 3.79 10x6/uL (4.00-5.40); RDW 12.8 % (11.5-14.5); WBC 3.5 10x3/uL (4.8-10.8)
[2020-02-19 14:26] LABS: PLATELET COUNT 164 10x3/uL (130-400)
== END | disposition home or self-care (01) ==
LOC: D.LABREF 13:41
PROVIDERS: ATTEND Family Medicine
DX: E87.6 Hypokalemia (principal)